=== PATIENT | female | born 1940 | race Caucasian/White ===

== ENCOUNTER 2016-08-19 17:17 | Observation (INO) | payer MEDICARE ==
[2016-08-19] MEDS ORDERED: Aspirin Low Dose CHEW TAB* 81 MG PO ONE (19:42)
[2016-08-19] MEDS ORDERED: Aspirin Low Dose CHEW TAB* 81 MG ONE (19:51)
[2016-08-19 20:11] LABS: Hematocrit 38 % (35-47); Hemoglobin 12.3 g/dl (12.0-16.0); Mean Corpuscular HGB Conc 33 g/dl (31-36); Mean Corpuscular Hemoglobin 28 pg (27-31); Mean Corpuscular Volume 86 fL (80-97); Mean Platelet Volume 8 um3 (7.4-10.4); Red Cell Distribution Width 15 % (10.5-15); White Blood Count 13.8 10^3/ul (3.5-10.8)
[2016-08-19 20:13] LABS: Add Diff/Slide Review? Slide Review Added; Comments Flag Yes
[2016-08-19 20:22] LABS: Albumin 3.5 g/dL (3.2-5.2); BUN/Creatinine Ratio 18.6 (8-20); EGFR African American 67.4 (>60); EGFR Non-African American 52.4 (>60); Globulin 2.9 g/dL (2-4); Potassium 3.5 mmol/L (3.5-5.0); Total Bilirubin 0.7 mg/dL (0.2-1.0); Total Protein 6.4 g/dL (6.4-8.9)
[2016-08-19 20:26] LABS: Troponin I 0.67 ng/mL (<0.04)
[2016-08-19] MEDS ORDERED: Nitroglycerin TAB 0.4 MG* 0.4 MG TAB SL ONE (20:46)
--- NOTE | 2016-08-19 21:01 | RAD ---
INDICATION: Shortness of breath one week after quadruple bypass surgery COMPARISON: Most recent comparison chest x-rays dated July 16, 2016 TECHNIQUE: Single AP portable view of the chest was obtained. FINDINGS: Image quality is compromised due to the relative inferiority of a portable chest x-ray. There is interval appearance of sternotomy wires and surgical clips overlying the mediastinum. The heart and mediastinum exhibit normal size and contour. Atherosclerotic calcification is seen overlying the arch of the aorta. The lungs are grossly clear. There is no evidence of a large pleural effusion. Visualized bones are normal for the patient's age. IMPRESSION: Postoperative findings as described above without radiographic evidence of acute cardiopulmonary abnormality.
[2016-08-19] MEDS ORDERED: Iodixanol* (CONTRAST) 320 MG/ML 100 ML SDV IV ONE (21:08)
--- NOTE | 2016-08-19 21:48 | RAD ---
INDICATION: Headache 1 week after quadruple bypass surgery COMPARISON: Similar examination dated June 09, 2015 TECHNIQUE: Contiguous axial sections of the brain were obtained from the skull base to the vertex without contrast. FINDINGS: There is stable hypoattenuation involving the right frontal lobe relative to the previous CT examination. Postsurgical changes include craniectomy involving the right frontal lobe. A stable surgical clip is seen at the right of midline sella turcica. The rosales-white matter differentiation is otherwise adequately maintained. There is no focal mass, mass effect or midline shift. There is no extra-axial hemorrhage. The visualized portion of the paranasal sinuses and mastoid air cells appear clear. IMPRESSION: Postoperative findings similar in appearance to the June 09, 2015 CT examination as described above.
--- NOTE | 2016-08-19 21:59 | RAD ---
INDICATION: Shortness of breath one week after quadruple bypass surgery. COMPARISON: None TECHNIQUE: Axial source images were acquired following the administration of 74 mL of Visipaque [address] angiographic technique. Coronal and sagittal reconstructed images were constructed and reviewed. FINDINGS: There there are no filling defects in the pulmonary arteries to indicate acute pulmonary embolic disease. The lungs are grossly clear. There is a small right-sided pleural effusion. There is fluid surrounding the descending thoracic aorta at the medial margin of the pleural space causing compressive atelectasis of the adjacent left lower lobe. Contrast injected into the left upper extremity is seen tracking along the azygos and hemiazygos veins refluxing inferiorly. Postoperative findings include sternotomy wires and surgical clips overlying the sternum. There is a small pericardial effusion. There is no mediastinal, hilar, or axillary lymphadenopathy. The visualized osseous structures appear normal. Limited views of the upper abdomen show no abnormalities. IMPRESSION: 1. No CT of evidence of pulmonary embolism. 2. Postoperative findings related to the patient's coronary artery bypass are described above. There is fluid tracking around the descending thoracic aorta collecting in the pleural space and causing a small degree of compressive atelectasis along the medial margin of the left lower lobe. 3. There is a small pericardial effusion. 4. There is a very small right-sided pleural effusion.
[2016-08-19] MEDS ORDERED: Aspirin TAB* 325 MG PO ONE (22:01)
[2016-08-19] MEDS ORDERED: Morphine INJ* 4 MG/ML 1 ML SYRINGE IV ONE (22:01)
[2016-08-19] MEDS ORDERED: Ondansetron INJ* 2 MG/ML VIAL IV ONE (22:01)
[2016-08-19] MEDS ORDERED: Ketorolac INJ* 30 MG/ML 1 ML VIAL IV PUSH ONE (22:11)
[2016-08-19 22:36] LABS: C Reactive Protein 21.88 mg/L (< 5.00)
[2016-08-19] MEDS ORDERED: Metoclopramide TAB* 10 MG PO PRN (22:37)
[2016-08-19] MEDS ORDERED: HYDROcodone/ACETAMIN 5-325 MG* 1 TAB PO PRN (22:37)
[2016-08-19] MEDS ORDERED: Dextrose 50% Syringe 50 ML* 25 GM/50 ML SYRINGE IV PUSH PRN (22:39)
[2016-08-19] MEDS ORDERED: Acetaminophen SUPP* 650 MG SUPP PR PRN (22:39)
[2016-08-19] MEDS ORDERED: Atorvastatin* 20 MG TAB PO SCH (23:00)
[2016-08-19 23:02] LABS: Erythrocyte Sed Rate 39 mm/Hr (0-40)
--- NOTE | 2016-08-20 02:43 | HP ---
HISTORY AND PHYSICAL: DATE OF ADMISSION: 08/19/16 PRIMARY CARE PHYSICIAN: Dr. John Taylor. HISTORY OF PRESENT ILLNESS: The patient is a 76-year-old woman, status post coronary artery bypass just 1 week ago whose visiting nurse was seeing her when she got out of her chair and became lightheaded and dizzy. She was also sweating profusely. She denied any chest pain, but was little short of breath. She had no loss of consciousness. She had no palpitations. She did lie on the table for quite a while and finally, the symptoms resolved. She had nausea and vomiting. Although she has not eaten much recently and she has occasionally taken her pain medications of [place]. Furthermore, she was placed on furosemide recently. PAST MEDICAL HISTORY: As noted, the patient has 4-vessel CABG on 08/11/16 at [place], coronary artery disease, bezoar, gastroparesis, type 2 diabetes mellitus, osteoarthritis of the knee, carpal tunnel syndrome, insomnia, diabetic neurological disorder, hypertension, hyperlipidemia. PAST SURGICAL HISTORY: Includes CABG, hernia repair, x4, Jordan fundoplication, cholecystectomy, cerebral aneurysm repair, cataract removal, partial meniscectomy. CURRENT MEDICATIONS: As follows: 1. Metformin 1000 mg twice daily. 2. Simvastatin 40 mg at bedtime. 3. Potassium chloride 20 mEq daily. 4. Starlix 60 mg 3 times a day. 5. Metoprolol titrate 25 mg twice daily. 6. Reglan 5 mg 3 times a day as needed. 7. Magnesium oxide 100 mg daily. 8. [place] 5/325 as needed for pain. 9. Furosemide 40 mg daily, supposed to end tomorrow. 10. Enalapril 10 mg twice daily, was just recently discontinued. 11. Aspirin 81 mg daily. ALLERGIES: She has allergy/adverse reaction to PENICILLIN and DAPAGLIFLOZIN. FAMILY HISTORY: Significant for diabetes and cancer. Father had diabetes. SOCIAL HISTORY: She is a . Her daughter, Radha Loa, is her healthcare proxy. She is ex-tobacco, smoked a pack a day for 2 years, quit at age 19. No alcohol or recreational drug use. She is retired. REVIEW OF SYSTEMS: A 14-point review of systems was completed with the patient. All pertinent positives and negatives are in the history of present illness, otherwise it is negative. PHYSICAL EXAMINATION GENERAL: Pleasant woman, lying in bed, in no acute distress. VITAL SIGNS: Blood pressure 125/76, pulse ox 96%, respiratory rate 26 breaths per minute, heart rate 108 beats per minute, temperature is 98.4 degrees. HEENT: Normocephalic, atraumatic. Pupils equal, round and reactive to light. Moist Mucous membranes. NECK: Supple. No JVD, bruits, palpable thyroid, or lymphadenopathy. CHEST: Clear to auscultation and percussion bilaterally. CARDIOVASCULAR: S1, S2 appreciated. ABDOMEN: Positive bowel sounds in all 4 quadrants. Soft, nontender. EXTREMITIES: No cyanosis, clubbing, or edema. +2 peripheral pulses bilaterally. NEURO: Alert and oriented x3. Moves all extremities. SKIN: No rashes or abnormalities. DIAGNOSTIC STUDIES/LAB DATA: White count 13.8, hemoglobin 12.3, hematocrit 38 , platelets 171. Sodium 131, potassium 3.5, chloride 92, CO2 29, BUN 19, creatinine 1.00, troponin is 0.67, BNP is 271. EKG shows sinus tachycardia at 112 beats per minute, normal axis, Q's in II, III, and F, LVH. Brain CT shows postoperative findings similar to 06/09/15. Examination as described above. Chest x-ray was interpreted by Radiology as postoperative findings described above without radiographic evidence of acute cardiopulmonary abnormality. CTA of the chest shows as interpreted by Radiology no CT evidence of pulmonary embolism. Post-operative findings related to the patient's coronary artery bypass as described above. Fluid tracking around the descending thoracic aorta collecting in the pleural space and causing a small degree compression atelectasis along the medial margin of the left lower lobe. There is a small pericardial effusion. There is a small right-sided pleural effusion. ASSESSMENT AND PLAN: 1. Dizziness and lightheadedness, status post CABG. I highly doubt this is secondary to her recent surgery or a manifestation of coronary artery disease. Her troponin likely is elevated from her recent surgery. We will cycle them, however. I will place her on telemetry. I will also get a transverse echocardiogram because of the small pericardial effusion, but again this is likely secondary to some inflammation post CABG. I think her lightheadedness and dizziness may be from being on furosemide, not eating much and her nausea and vomiting could be from the narcotics and not eating much. We will observe overnight by anticipation and will do well and go home fairly shortly. 2. Diabetes mellitus. Hold metformin, fingersticks with sliding scale insulin. 3. Hypertension, good control. Continue current regimen. 4. Hyperlipidemia. Continue statin, stable. 5. FEN. NPO after midnight just in case she needs intervention of some kind. 6. The patient is a full code. TIME SPENT: Over 75 minutes were spent on this H and P, more than 40 minutes of which was spent in direct [id number] contact with the patient in evaluation , physical exam, counseling, and coordination of care. CC: Dr. John Taylor; [place], * [id number]/CPS #: [id number] JORGE
[2016-08-20] MEDS: Insulin LISPRO* 1 UNITS UNIT SUBCUT SCH ×3 (03:03→12:39)
[2016-08-20] MEDS: Heparin VIAL(*) 5000 UNITS/ML VIAL (FIVE THOUSAND) SUBCUT SCH ×2 (06:24→12:38)
[2016-08-20] MEDS: NATEGLINIDE 60 MG PO SCH ×2 (08:42→12:27)
[2016-08-20] MEDS ORDERED: Metoprolol Tartrate TAB* 25 MG PO SCH (09:00)
[2016-08-20] MEDS ORDERED: Magnesium Oxide TAB* 400 MG PO SCH (09:00)
[2016-08-20] MEDS ORDERED: Enalapril TAB* 20 MG PO SCH (09:00)
[2016-08-20] MEDS ORDERED: Furosemide TAB* 40 MG PO SCH (09:00)
[2016-08-20] MEDS ORDERED: Potassium Chlor TAB* 20 MEQ TAB.ER PO SCH (09:00)
[2016-08-20] MEDS ORDERED: Aspirin EC Low Dose* 81 MG TAB.EC PO SCH (09:00)
[2016-08-20] MEDS ORDERED: NS 0.9% 1000 ML* 500 ML IV SCH (10:00)
[2016-08-20 10:22] LABS: Hematocrit 35 % (35-47); Hemoglobin 11.4 g/dl (12.0-16.0); Mean Corpuscular HGB Conc 33 g/dl (31-36); Mean Corpuscular Hemoglobin 28 pg (27-31); Mean Corpuscular Volume 86 fL (80-97); Mean Platelet Volume 8 um3 (7.4-10.4); Red Blood Count 4.02 10^6/ul (4.0-5.4); Red Cell Distribution Width 14 % (10.5-15); White Blood Count 12.3 10^3/ul (3.5-10.8)
[2016-08-20 10:44] LABS: BUN/Creatinine Ratio 21.9 (8-20); Calcium 8.8 mg/dL (8.6-10.3); EGFR African American 65.2 (>60); EGFR Non-African American 50.7 (>60); Potassium 3.9 mmol/L (3.5-5.0)
[2016-08-20 11:41] VITALS: BP 133/45
--- NOTE | 2016-08-20 12:10 | ECHO ---
Patient: SONNY RETANA Rec#: [id number] : 1940 Date: 08/20/2016 Age: 76y Height: 157.48 cm / 62.0 in Weight: 74.84 kg / 164.9 lbs Sex: F BSA: 1.76 Room#: [facility] Admit Date#: 08/19/2016 Type: Inpatient Referring: Bon Wooten MD Reading: Twyla Rand MD Bridal Sales Consultant: Vicky Manriquez RDCS CC: John Taylor MD Transthoracic Echocardiogram Indication: CAD/s/p CABG BP: 109/42 HR: 81 Rhythm: NSR Findings History: 9 days s/p CABG x4,CAD,DM,HTN,HLD,former smoker. Technical Comments: The study is technically limited due to the patient's smoking history. Completed at 1138. Left Ventricle: The left ventricular chamber size is decreased. Moderate concentric left ventricular hypertrophy is observed. The estimated ejection fraction is 55-60%. Post surgical hypokinesis of the interventricular septum is observed consistent with coronary artery bypass. Abnormal left ventricular diastolic function is observed. Left Atrium: The left atrial chamber size is normal. Right Ventricle: The right ventricular cavity size is normal. The right ventricular global systolic function is normal. The septum has abnormal paradoxical motion consistent with post-operative pressure. Right Atrium: The right atrial cavity size is normal. Aortic Valve: The aortic valve is trileaflet. The aortic valve leaflets are mildly thickened. Best visualization from A5C. There is mild aortic regurgitation. Mitral Valve: There is mitral annular calcification. The mitral valve leaflets are mildly thickened. There is trace to mild mitral regurgitation. There is no evidence of mitral stenosis. Tricuspid Valve: The tricuspid valve leaflets are normal. There is mild tricuspid regurgitation. There is evidence of mild to moderate pulmonary hypertension. There is no tricuspid stenosis. Pulmonic Valve: The pulmonic valve appears normal. There is no evidence of pulmonic regurgitation. There is no pulmonic stenosis. Pericardium: There is no pericardial effusion. Aorta: There is no dilatation of the ascending aorta. There is no dilatation of the aortic arch. There is no dilation of the aortic root. Pulmonary Artery: The main pulmonary artery is not well visualized. Venous: The venous system is not well visualized. Conclusions Moderate concentric left ventricular hypertrophy is observed. Expected septal dyskinesis c/w post CABG noted, all other areas of the myocardium moved normally with normal to hyperdynamic systolic function. The estimated ejection fraction is 55-60%. Abnormal left ventricular diastolic function is observed. The right ventricular global systolic function is normal. Aortic valve sclerosis with mild aortic regurgitation, no reversal of flow in the descending aorta. There is trace to mild mitral regurgitation. There is mild tricuspid regurgitation. There is evidence of mild to moderate pulmonary hypertension: 48 mmHg. There is no pericardial effusion. Technically limited as expected with recent CABG. Compared with prior echo of 07/24/16, left ventricular function is stable, RV no longer hyperdynamic, PA pressure has increased from 30 mmHg. Measurements Name Value Normal Range RVIDd (AP) 2D 3 cm (0.9 - 2.6) RVDdMajor (2D) 3.8 cm (2.2 - 4.4) RAd ISD 4CH 4.3 cm (3.4 - 4.9) RA (A4C)W 3.3 cm (2.9 - 4.6) IVSd (2D) 1.4 cm (0.6 - 1) LVPWd (2D) 1.3 cm (0.6 - 1) LVIDd (2D) 3.1 cm (3.6 - 5.4) LVIDs (2D) 2.1 cm - LV FS (2D) 32 % (25 - 45) Aortic Annulus 1.5 cm (1.4 - 2.6) Ao root diameter (2D) 3.2 cm (2.1 - 3.5) Ascending Ao 3.2 cm (2.1 - 3.4) Aortic arch 2.7 cm (1.8 - 3.4) LA dimension (AP) 2D 3.7 cm (2.3 - 3.8) LAd ISD 4CH 4.9 cm (2.9 - 5.3) LA ISD 4CH W 3.5 cm (2.5 - 4.5) Name Value Normal Range LA ESV SP 4CH (A/L) 37 ml - LA ESV SP 2CH (A/L) 36 ml - LA ESV BP (A/L) 37 ml - LA ESV BP (A/L) index 20.9 ml/m2 - LA ESV SP 4CH (MOD) 33 ml - LA ESV SP 2CH (MOD) 36 ml - Name Value Normal Range MV E-wave Vmax 0.7 m/sec - MV deceleration time 253 msec - MV A-wave Vmax 1.1 m/sec - MV E:A ratio 0.68 ratio - LV septal e' Vmax 0.04 m/sec - LV lateral e' Vmax 0.04 m/sec - LV E:e' septal ratio 17.5 ratio - LV E:e' lateral ratio 17.5 ratio - Name Value Normal Range AV Vmax 1.9 m/sec - AV VTI 36.2 cm - AV peak gradient 13.18 mmHg - AV mean gradient 7.18 mmHg - LVOT Vmax 1.6 m/sec - LVOT VTI 38 cm - LVOT peak gradient 9.91 mmHg - LVOT mean gradient 4.61 mmHg - AR PHT 341 msec - AR peak gradient 60.06 mmHg - Name Value Normal Range TR Vmax 3.2 m/sec - TR peak gradient 40 mmHg - RAP 8 mmHg - RVSP 48 mmHg - Name Value Normal Range PV Vmax 0.7 m/sec - PV peak gradient 1.9 mmHg -
--- NOTE | 2016-08-20 22:28 | ED ---
Daron Tai Adam, scribed for Gino Dick MD on 08/19/16 at 1919 . Complex/Multi-Sys Presentation - HPI Summary HPI Summary: Pt is a 76 year old female presenting with SOB and multiple other complaints since a CABG last week. She states that the visiting nurse was at the house today and the pt was getting short of breath, dizzy, and diaphoretic while walking to the kitchen. She currently c/o pain in her upper back between the spine and shoulder blade that set on 2 days ago. She had a severe REYES yesterday. She also c/o blurred vision and humming in her ears today. She denies fever, chills, vomiting, diarrhea, cough, weight gain. Pt was discharged 4 days ago after having CABG x4 in [place] 1 week ago. - History Of Current Complaint Chief Complaint: EDShortnessOfBreath Time Seen by Provider: 08/19/16 17:40 Hx Obtained From: Patient Onset/Duration: Gradual Onset, Lasting Days, Still Present Timing: Constant Severity Currently: Moderate Severity Initially: Moderate Location: Pain At: - Upper back Character: Typical Headache Associated Signs And Symptoms: Positive: Dizziness, SOB, Diaphoresis, Other - Blurred vision, humming in ears - Allergies/Home Medications Allergies/Adverse Reactions: Allergies Allergy/AdvReac Type Severity Reaction Status Date / Time Penicillins Allergy Unknown See Comment Verified 03/14/16 06:18 Dapagliflozin [From [facility]] Allergy Unknown Verified 08/07/16 16:25 Reaction Details EPIDURAL Allergy PT STATES Uncoded 03/14/16 06:18 SHE GOT TO MUCH Home Medications: Home Medications Aspirin EC Low Dose* [Ecotrin EC Low Dose 81 MG*] 81 mg PO DAILY 08/19/16 [ History Confirmed 08/19/16] Furosemide TAB* [Lasix TAB*] 40 mg PO DAILY 08/19/16 [History Confirmed 08/19/16 ] HYDROcodone/ACETAMIN 5-325 MG* [[place] 5-325 TAB*] 1 - 2 tab PO Q4H PRN MDD 12 tabs 08/19/16 [History Confirmed 08/19/16] Magnesium Oxide TAB* [MagOx 400 TAB*] 400 mg PO DAILY 08/19/16 [History Confirmed 08/19/16] Metoclopramide TAB* [Reglan TAB*] 5 mg PO TID AC PRN 08/19/16 [History Confirmed 08/19/16] Nateglinide(NF) [Starlix(NF)] 60 mg PO TID AC 08/19/16 [History Confirmed ] Potassium Chlor TAB* [Klor Con ER TAB*] 20 meq PO DAILY 08/19/16 [History Confirmed 08/19/16] Simvastatin (NF) [Zocor (NF)] 40 mg PO BEDTIME 08/19/16 [History Confirmed 08/19] metFORMIN* [Glucophage 1000 MG TAB *] 1,000 mg PO BID WITH MEALS 08/19/16 [ History Confirmed 08/19/16] PMH/Surg Hx/FS Hx/Imm Hx Endocrine/Hematology History: Reports: Hx Diabetes - type 2 Denies: Hx Thyroid Disease Cardiovascular History: Reports: Hx Hypertension Denies: Other Cardiovascular Problems/Disorders Respiratory History: Reports: Hx Sleep Apnea - NOT DIAGNOSED Denies: Hx Asthma, Hx Chronic Obstructive Pulmonary Disease (COPD) GI History: Reports: Hx Hiatal Hernia - SURGICALLY REPAIRED 1992 Denies: Hx Ulcer, Other GI Disorders Musculoskeletal History: Reports: Hx Arthritis - RIGHT KNEE, Hx Rheumatoid Arthritis Denies: Hx Osteoporosis, Other Musculoskeletal History Sensory History: Reports: Hx Cataracts - ONEAL, Hx Contacts or Glasses - GLASSES Denies: Hx Hearing Aid Opthamlomology History: Reports: Hx Cataracts - ONEAL, Hx Contacts or Glasses - GLASSES Neurological History: Reports: Hx Migraine - PAST ONLY, Other Neuro Impairments/ Disorders - 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 Psychiatric History: Reports: Hx Anxiety - MILD, NO MEDS - Surgical History Surgery Procedure, Year, and Place: 4 c sections, gallbladder removed, many hernias, eye sugery Hx Anesthesia Reactions: Yes - N/V - Immunization History Date of Tetanus Vaccine: Unk Date of Influenza Vaccine: Fall 2014 Infectious Disease History: Denies: Hx Hepatitis, Hx Human Immunodeficiency Virus (HIV), Traveled Outside the [place] in Last 30 Days - Family History Known Family History: Positive: Other - Negative: osteoporosis, breast cancer, malignant hyperthermia - Social History Occupation: Retired Lives: Alone Alcohol Use: None Hx Substance Use: No Substance Use Type: Reports: None Hx Tobacco Use: No Smoking Status (MU): Never Smoked Tobacco Have You Smoked in the Last Year: No Review of Systems Positive: Skin Diaphoresis. Negative: Fever, Chills Positive: Blurred Vision. Negative: Erythema Positive: Other - Humming in ears. Negative: Sore Throat Negative: Chest Pain Positive: Shortness Of Breath. Negative: Cough Negative: Abdominal Pain, Vomiting, Nausea Negative: dysuria, hematuria Positive: Other - Back pain. Negative: Edema Negative: Rash Neurological: Other - Dizziness Positive: Headache All Other Systems Reviewed And Are Negative: Yes Physical Exam - Summary Physical Exam Summary: Constitutional: Well-developed, Well-nourished, Alert. (-) Distressed Skin: Warm, Dry HENT: Normocephalic; Atraumatic Eyes: Conjunctiva normal Neck: Musculoskeletal ROM normal neck. (-) JVD, (-) Stridor, (-) Tracheal deviation Cardio: Rhythm regular, rate normal, Heart sounds normal; Intact distal pulses; The pedal pulses are 2+ and symmetric. Radial pulses are 2+ and symmetric. (-) Murmur Pulmonary/Chest wall: Effort normal. (-) Respiratory distress, (-) Wheezes, (-) Rales Abd: Soft, (-) Tenderness, (-) Distension, (-) Guarding, (-) Rebound Musculoskeletal: (-) Edema Lymph: (-) Cervical adenopathy Neuro: Alert, Oriented x3 Psych: Mood and affect Normal Triage Information Reviewed: Yes Vital Signs On Initial Exam: Initial Vitals Temp Pulse Resp BP Pulse Ox 98.4 F 115 20 114/54 98 08/19/16 17:42 08/19/16 17:42 08/19/16 17:42 08/19/16 17:42 08/19/16 17:42 Vital Signs Reviewed: Yes - Colon Coma Scale Coma Scale Total: 15 Diagnostics - Vital Signs Vital Signs Temp Pulse Resp BP Pulse Ox 08/19/16 18:00 18 114/54 08/19/16 17:42 98.4 F 115 20 114/54 98 - Laboratory Result Diagrams: 08/19/16 19:55 08/19/16 19:55 Lab Statement: Any lab studies that have been ordered have been reviewed, and results considered in the medical decision making process. - Radiology CXR Radiology Interpretation Completed By: Radiologist - IMPRESSION: Postoperative findings as described above without radiographic evidence of acute cardiopulmonary abnormality. - CT CHEST/THORAX CTA CT Interpretation Completed By: Radiologist - IMPRESSION: 1. No CT of evidence of pulmonary embolism. 2. Postoperative findings related to the patient's coronary artery bypass are described above. There is fluid tracking around the descending thoracic aorta collecting in the pleural space and causing a small degree of compressive atelectasis along the medial margin of the left lower lobe. 3. There is a small pericardial effusion. 4. There is a very small right-sided pleural effusion. BRAIN CT Interpretation Completed By: Radiologist - IMPRESSION: Postoperative findings similar in appearance to the June 09, 2015 CT examination as described above. - EKG 20:03 Cardiac Rate: Tachycardia - 112 BPM EKG Rhythm: Sinus Tachycardia - Additional Comments Diagnostic Additional Comments: Troponin I - 0.67 Complex Multi-Symp Course/Dx Course Of Treatment: Initial patient contact made at 19:15. Medical record review: Pt was having outpatient cardiac catheterization and was transferred to [facility] for severe three vessel disease. It appears that no troponin testing was done at [facility]. Pt developed post-op anemia and trasfused 2 units of packed red blood cells. Assessment/Plan: Elevation of troponin post-operatively. Less likely VT. No baseline labs for comparison. No evidence of fluid overload. Pt is actually losing weight. - Diagnoses Provider Diagnoses: Pleural effusion, Pericardial effusion, Shortness of breath, Elevated troponin - Physician Notifications Discussed Care Of Patient With: Dr. Diaz (cardio) at 22:15. We discussed lab values, physical exam, and vital signs. He recommends the pt be admitted to [facility] with serial troponin and echocardiogram in the morning. Rule out progressive pericardial effusion. He also recommended utilizing additional nonsteroidals. Also sed rate and CRP. We felt that the findings on the CT were likely post- operative. Discharge - Discharge Plan Condition: Stable Disposition: ADMITTED TO [facility] Referrals: John Taylor MD [Primary Care Provider] - The documentation as recorded by the Daron simon Adam accurately reflects the service I personally performed and the decisions made by , Gino Dick MD.
--- NOTE | 2016-08-21 14:15 | DS ---
DISCHARGE SUMMARY: DATE OF ADMISSION: 08/19/16 DATE OF DISCHARGE: 08/20/16 PRIMARY DIAGNOSIS: Dehydration. SECONDARY DIAGNOSES: Include: 1. Coronary artery disease, status post coronary artery bypass grafting on , [facility]. 2. Type 2 diabetes. 3. Hypertension. 4. Hyperlipidemia. MEDICATIONS ON DISCHARGE: 1. Enalapril 10 mg twice daily. 2. Zocor 50 mg at bedtime. 3. Starlix 60 mg 3 times a day with meals. 4. Metoprolol tartrate 25 mg twice daily. 5. Reglan 5 mg 3 times a day with meals as needed. 6. Metformin 1000 mg twice daily with meals. 7. Magnesium oxide 400 mg daily. 8. [place] 5/325 one to two tabs every 4 hours as needed for pain. 9. Aspirin 81 mg daily. PERTINENT LABORATORY DATA: Troponin I 0.68 on three consecutive checks and then decreased to 0.54. ESR is 39 with a white count of 12.5, which is 78% neutrophils. PERTINENT DIAGNOSTIC DATA: Chest CTA, impression: No CT evidence of pulmonary embolism. Postoperative findings related to the patient's CABG including tracking above the descending thoracic aorta collecting in the pleural space and causing a small degree of compressive atelectasis along the medial margin of the left lower lobe. Small pericardial effusion. Very small right-sided pleural effusion. Transthoracic echocardiogram, impression: Moderate concentric left ventricular hypertrophy. Expected septal dyskinesis consistent with post CABG, all other areas of myocardium move normally with twukop-zb-xrhoeppipuuj systolic function. Estimated EF 55% to 60%. Abnormal left ventricular diastolic function. RV global systolic function is normal. Aortic valve sclerosis with mild AR. Wzdok-ms-qupg MR, mild TR, evidence of egcm-cz-lqnibprf pulmonary hypertension. No pericardial effusion. HISTORY OF PRESENT ILLNESS AND HOSPITAL COURSE: This is a pleasant 76-year-old female, past medical history recent 4-vessel CABG on August 11, discharged home 4 days prior to presentation. She had been feeling well for the first 2 days prior to presentation; however, developed increasing shortness of breath over the day prior to presentation. She noted when she got up to walk, she became severely lightheaded. Of note, she was discharged on Lasix for a limited course for the last day to be today. She felt severely thirsty. She was admitted to the hospital. Her troponins were monitored and she received IV fluids. With the receipt of approximately a liter to a liter and a half of IV fluids, the patient's lightheadedness improved. She had negative orthostatic vital signs and her heart rate improved from the 100s down to the 90s. Of note , last recorded heart rate in the computer is 112; however, is now high 80s to low 90s. She was ruled out for pulmonary embolism. She was ambulating back and forth to the bathroom without complaints. No lightheadedness. No chest pain. No shortness of breath and is anxious to return home. Her exam is notable for absence of infection in her sternotomy nor in her left lower extremity venous graft harvest sites. Her lungs are clear, although a small amount of atelectasis and a small pleural effusion may have been contributing to her increasing shortness of breath status post her hospital stay and operation. FOLLOWUP INSTRUCTIONS: At followup, please: 1. Follow up for resolution of symptoms. 2. Monitor volume status off Lasix. 3. No other specific labs or vitals that need followup. Reasons to return to the hospital including but not limited to recurrent or worsening symptoms including chest pain, shortness of breath, nausea, vomiting, lightheadedness, loss of consciousness, near loss of consciousness, fever, chills, night sweats, bleeding from any source, increased redness or pain in any place from her sternotomy wound or graft sites were discussed with the patient. She acknowledged understanding. TIME SPENT: Greater than 50 minutes was spent on discharge of this patient, greater than half was spent nnxn-ny-kqbs with the patient. [id number]/[facility] #: [id number] JORGE
== END 2016-08-20 16:23 | disposition home or self-care (01) ==
LOC: ED 17:17 → MEDTELE 22:39 → UNDOADMOB 23:37 → MEDTELE 08-20 11:58
PROVIDERS: ADMIT Internal Medicine; ATTEND Internal Medicine
DX: E86.0 Dehydration (principal); R06.02 Shortness of breath; R42 Dizziness and giddiness; I25.10 Atherosclerotic heart disease of native coronary artery without angina pectoris; I10 Essential (primary) hypertension; Z95.1 Presence of aortocoronary bypass graft; E78.5 Hyperlipidemia, unspecified; E11.49 Type 2 diabetes mellitus with other diabetic neurological complication; M17.10 Unilateral primary osteoarthritis, unspecified knee; G47.00 Insomnia, unspecified; J90 Pleural effusion, not elsewhere classified; I31.3 Pericardial effusion (noninflammatory); R00.0 Tachycardia, unspecified; I51.7 Cardiomegaly; R94.31 Abnormal electrocardiogram [ECG] [EKG]; Z79.82 Long term (current) use of aspirin; Z79.84 Long term (current) use of oral hypoglycemic drugs; Z79.899 Other long term (current) drug therapy; Z88.0 Allergy status to penicillin; Z88.8 Allergy status to other drugs, medicaments and biological substances
CPT/HCPCS: 36415; 70450; 71010; 71275; 80048; 80053; 83605; 83880; 84484; 85025; 85652; 86140; 93005; 93306; 96372; 96374; 96375; 99284; A9270-GY; G0378; J1644; J1885; J2270; J2405; Q9967

== ENCOUNTER 2016-09-09 12:45 | Inpatient (IN) | payer MEDICARE ==
[2016-09-09] MEDS: NS 0.9% 1000 ML* 1,000 ML IV SCH ×2 (15:30→22:16)
[2016-09-09 15:38] LABS: Hematocrit 34 % (35-47); Hemoglobin 10.8 g/dl (12.0-16.0); Mean Corpuscular HGB Conc 32 g/dl (31-36); Mean Corpuscular Hemoglobin 27 pg (27-31); Mean Corpuscular Volume 86 fL (80-97); Mean Platelet Volume 7 um3 (7.4-10.4); Red Blood Count 3.97 10^6/ul (4.0-5.4); Red Cell Distribution Width 15 % (10.5-15); White Blood Count 7.2 10^3/ul (3.5-10.8)
--- NOTE | 2016-09-09 15:46 | RAD ---
INDICATION: Feels ill. COMPARISON: Comparison is made with prior chest x-ray study from August 27, 2016. TECHNIQUE: A portable view of the chest was obtained. FINDINGS: The patient appears to be status post coronary artery bypass surgery. The heart is within normal limits in size. The lungs are clear. No pleural effusion is seen. Several surgical clips project in the left upper quadrant in the region of the gastroesophageal junction. IMPRESSION: POSTSURGICAL CHANGES, NO EVIDENCE FOR ACUTE FINDING.
[2016-09-09 15:57] LABS: Albumin 3.7 g/dL (3.2-5.2); BUN/Creatinine Ratio 17.1 (8-20); Calcium 9.4 mg/dL (8.6-10.3); EGFR African American 104.1 (>60); EGFR Non-African American 80.9 (>60); Globulin 3.2 g/dL (2-4); Magnesium 1.8 mg/dL (1.9-2.7); Potassium 4.7 mmol/L (3.5-5.0); Total Bilirubin 0.4 mg/dL (0.2-1.0); Total Protein 6.9 g/dL (6.4-8.9)
[2016-09-09 15:59] LABS: Troponin I 0.01 ng/mL (<0.04)
[2016-09-09] MEDS ORDERED: Iodixanol* (CONTRAST) 320 MG/ML 100 ML SDV IV ONE ×2 (16:04→18:56)
[2016-09-09 16:06] LABS: Urine Bacteria Absent (Absent); Urine Bilirubin Negative (Negative); Urine Glucose Negative (Negative); Urine Nitrite Negative (Negative)
[2016-09-09 16:27] LABS: TSH (Thyroid Stimulating Horm) 0.29 mcIU/mL (0.34-5.60)
--- NOTE | 2016-09-09 17:02 | RAD ---
INDICATION: Currently has DVT, shortness of breath. COMPARISON: Comparison is made with a prior CT angiogram of the chest from August 19, 2016. Correlation is also made with a chest x-ray study from September 09, 2016. TECHNIQUE: A CT angiogram of the chest was performed with intravenous following intravenous injection of 69 ml of Visipaque 320 nonionic contrast. Contiguous axial sections were obtained from the lung apices through the lung bases. Images were reconstructed in the coronal and sagittal planes. FINDINGS: There is thrombus in the right main pulmonary artery extending into right upper lobe branches. No other intraluminal filling defects are seen. These findings are new from the prior study. The heart appears mildly enlarged and unchanged. The patient is status post coronary artery bypass surgery. There is a small pericardial effusion which is unchanged. The thoracic aorta is normal in caliber and demonstrates homogeneous contrast opacification. No significant enlarged mediastinal or hilar lymph nodes are seen. There is mild dependent bilateral lower lobe subsegmental atelectasis. The lungs are otherwise clear. No pleural effusion is present. No significant focal osseous abnormality is seen. IMPRESSION: 1. MULTIPLE PULMONARY EMBOLI INVOLVING THE RIGHT MAIN PULMONARY ARTERY AND RIGHT UPPER LOBE SEGMENTAL ARTERY BRANCHES. 2. SMALL PERICARDIAL EFFUSION, UNCHANGED.
[2016-09-09] MEDS ORDERED: Enoxaparin(*) 80 MG/0.8 ML SYR SUBCUT ONE (17:07)
--- NOTE | 2016-09-09 17:48 | RAD ---
INDICATION: Headache with blurry vision. COMPARISON: Comparison is made with a prior CT of the brain from August 19, 2016. TECHNIQUE: Contiguous axial sections of the brain were obtained from the skull base to the vertex without contrast. FINDINGS: The patient is status post right frontal craniotomy and clipping of an aneurysm. There are surgical clips present at the skull base on the right side adjacent to the cavernous sinus and sella turcica. The ventricles, cisterns and sulci are mildly prominent consistent with mild atrophy. There is a focal area of encephalomalacia in the right frontal and anterior right temporal lobes which is unchanged. No other focal abnormality or mass effect is present. No hemorrhage is seen. There is contrast present from a recent prior CT of the chest which was performed approximately one hour ago. The visualized portion of the paranasal sinuses and mastoid air cells appear clear. IMPRESSION: POSTSURGICAL CHANGES MOST CONSISTENT WITH A PRIOR ANEURYSM CLIPPING, NO EVIDENCE FOR ACUTE FINDING.
[2016-09-09] MEDS ORDERED: Ondansetron INJ* 2 MG/ML VIAL IV PRN (18:36)
[2016-09-09] MEDS ORDERED: HYDROcodone/ACETAMIN 5-325 MG* 1 TAB PO PRN (18:41)
[2016-09-09] MEDS ORDERED: Metoclopramide TAB* 10 MG PO PRN (18:41)
[2016-09-09] MEDS ORDERED: Dextrose 50% Syringe 50 ML* 25 GM/50 ML SYRINGE IV PUSH PRN (18:58)
--- NOTE | 2016-09-09 19:44 | RAD ---
INDICATION: Headache, history of aneurysm. COMPARISON: Comparison is made with a prior CT angiogram of the brain from June 20, 2015 correlation is also made with a prior CT of the brain from September 09, 2016. TECHNIQUE: A CT angiogram of the head and neck was performed following intravenous injection of 80 ml of Visipaque 320 nonionic contrast. Contiguous axial sections were obtained from the thoracic inlet through the skull vertex. Images were reconstructed in the coronal and sagittal planes and in a 3-D volume rendered format. The distal cervical internal carotid artery diameter is used as the denominator for stenosis measurement. FINDINGS: RIGHT CAROTID: The common carotid artery appears widely patent. There is moderate calcific plaque present within the carotid bulb and proximal internal carotid artery giving rise to approximately a 30% stenosis. The remaining internal carotid artery appears widely patent. LEFT CAROTID: The left common carotid artery appears widely patent. There is moderate calcific plaque present within the carotid bulb and proximal internal carotid artery giving rise to approximately a 30% stenosis. The remaining internal carotid artery appears widely patent. VERTEBRALS: The vertebral arteries appear patent. CTA BRAIN: The internal carotid, anterior and middle cerebral arteries appear patent without evidence for high-grade stenosis or occlusion. There is mild to moderate calcific plaque present within the cavernous portion of the internal carotid arteries. There are aneurysm clips present at the skull base which limits the study slightly. The vertebral, basilar and posterior cerebral arteries appear patent without evidence for high-grade stenosis or occlusion. There is a focal area of encephalomalacia involving the anterior aspect of the right temporal lobe and the adjacent right frontal lobe. No other focal abnormalities are seen. No aneurysm or vascular malformation is seen. NECK: No significant enlarged lymph nodes are seen within the neck. The thyroid, parotid and submandibular glands appear to be within normal limits. Mild interstitial changes noted at the lung apices which otherwise appear clear. The sinuses are clear. The patient is status post right frontal craniotomy. IMPRESSION: 1. NO EVIDENCE FOR HEMODYNAMICALLY SIGNIFICANT CAROTID STENOSIS. 2. NO EVIDENCE FOR RECURRENT ANEURYSM. 3. STUDY SLIGHTLY LIMITED DUE TO ARTIFACT FROM ANEURYSM CLIPS. CPT II Codes: 3100F
[2016-09-09] MEDS: Atorvastatin* 20 MG TAB PO SCH (20:31)
--- NOTE | 2016-09-09 22:14 | HP ---
HISTORY AND PHYSICAL: DATE OF ADMISSION: 09/09/16 PRIMARY CARE PROVIDER: Dr. Taylor. ATTENDING PHYSICIAN WHILE IN THE HOSPITAL: Bon Wooten MD *(report dictated by Kee Esteves NP) CHIEF COMPLAINT: 1. Headaches. 2. Blurry vision. HISTORY OF PRESENT ILLNESS: Ms. Beltran is a 76-year-old female patient coming into the ER today with complaints of blurry vision and headache. She states that last evening she had headache, it was 4/10, mild headache, but she was having some blurry vision. She thinks it lasted for about an hour, both eyes blurry, it went away. She went to bed. She woke up again this morning, she had a worsening headache, not the worst of her life, on the top of her head, front of her head, but she also was having blurry vision. It did eventually go away. She said her vision never truly returned to her baseline according to her and she was concerned. She told her visiting nurse this and the visiting nurse said that she might want to go to the hospital to evaluate it, so she was sent to the hospital and was evaluated here. She denies specifically having any changes in speech. Denies having any worsening with speech, denies any facial droop. Denies any weakness to one side or the other. Denies any dizziness. Denies having any trouble with gait. She does of interest, was recently diagnosed on with extensive right lower extremity DVT by her primary and was started on Eliquis which she has been taking and not missing any doses. She was here on 08/19/16, one week after having had a CABG on 08/11/16 over in [place] and was here for chest pain rule out and had a CTA at that point, which was negative. She comes back today again mostly because of the blurry vision, headache. She denied any worsening chest pain. Denies having any shortness of breath. Denies having any difficulty with taking a deep breath. She said she has been doing well and said her activity level had not changed. She was evaluated in the ED. She had a CAT scan which was negative of the brain. No acute findings. There was an aneurysmal clipping which she has had for sometime and unfortunately, though she did have another CTA of the chest today which did now show PE's in the lungs. Because of these findings, we were asked to evaluate for admission. PAST MEDICAL HISTORY: Significant for: 1. CAD. 2. Bezoar. 3. Osteoarthritis. 4. Gastroparesis. 5. Diabetes. 6. Carpal tunnel syndrome. 7. Insomnia. 8. Hyperlipidemia. 9. Hypertension. 10. Diabetic neurological disorders. 11. DVT. PAST SURGICAL HISTORY: 1. She has had CABG. 2. Hernia repair. 3. x4. 4. Jordan fundoplication. 5. Brain aneurysm repair. 6. Laparoscopic cholecystectomy. 7. Cataract extraction. 8. Appendectomy. 9. Knee arthroscopy. HOME MEDICATIONS: According to the list that she provided include: 1. Toprol-XL 25 mg p.o. daily. 2. Reglan 5 mg p.o. t.i.d. as needed. 3. Apixaban 5 mg p.o. b.i.d. 4. Lipitor 20 mg p.o. at bedtime. 5. Glucophage 1000 mg p.o. b.i.d. 6. Starlix 60 mg p.o. t.i.d. with meals. 7. Mag Ox 400 mg p.o. daily. 8. [place] 1 to 2 tablets every 4 hours as needed. 9. Aspirin 81 mg p.o. daily. ALLERGIES: To medications include PENICILLIN and DAPAGLIFLOZIN, an epidural. FAMILY HISTORY: Her mother had a history of PE and father had a history of diabetes. SOCIAL HISTORY: She is a former smoker, no longer smoking. She does not drink alcohol. Surrogate decision maker is her daughter, Radha. REVIEW OF SYSTEMS: There is no documented fever. She denies having any significant weight change. No double vision. No ear discharge. No rhinorrhea. No sore throat, no thyroid enlargement. She denies any chest pain currently. She denies having any orthopnea. No nocturnal dyspnea. There is no abdominal pain. No nausea, no vomiting, no dysuria. No frequency. No loss of consciousness. No pruritus. No skin ulcerations. Review of 14 systems completed, all others negative. PHYSICAL EXAMINATION GENERAL: At this time, Mrs. Beltran is a 76-year-old female patient. She is sitting in the ER stretcher. She does not appear to be in any acute distress. VITAL SIGNS: Reveals blood pressure 146/86, pulse 79, respirations 20, O2 sat 98%, temperature 98.0. HEENT: Head is atraumatic and normocephalic. Eyes: EOMs are intact. Sclerae anicteric and not pale. Throat: Oral mucosa appears to be moist. No oropharyngeal erythema. NECK: Supple. LUNGS: Clear to auscultation bilaterally. There was no wheezes, rales, or rhonchi noted. HEART: Sounds S1, S2. Regular rate and rhythm. No murmurs, rubs, or gallops. ABDOMEN: Soft, flat, nontender. Bowel sounds present. EXTREMITIES: Pulses were 2+ throughout. She is able to move all 4 extremities with 5/5 strength. NEUROLOGIC: The patient is awake, she is alert, speech is clear. Cranial nerves II through XII are intact. Complaint Specialist are equal. No facial drooping. Heel- to-mondragon intact bilaterally. Fpyoqp-ia-luzi intact bilaterally. No gross focal deficits. SKIN: Intact with the exception that she has a well-healing incision to the midline sternum which is clean, dry, and intact. No erythema noted. No discharge. LABORATORY DATA: Labs today revealed WBC 7.2, RBC 3.97, hemoglobin 10.8, hematocrit 34, platelet count of 280. INR is 1.52. PTT 27.4. D-dimer greater than 1075. Sodium 134, potassium 4.7, chloride of 101, bicarb 24, BUN 12, creatinine 0.97, glucose 99, lactic 2.4, calcium 9.4, mag 1.8, total bili 0.4, AST 15, ALT 11, alk phos 86. CK 17, CK-MB 1.5, troponin 0.01, BNP 111, TSH low at 0.29. Urine obtained showed trace 1+ blood, 1+ wbc,1+ rbc, present squamous epithelial cells. She had multiple imaging here in the ED, starting out with chest x-ray which revealed postsurgical changes, no evidence of acute findings. She had a brain CT which revealed postsurgical changes most consistent with prior aneurysm clipping, no evidence for acute finding. Chest, thorax CTA showed multiple pulmonary emboli involving the right main pulmonary artery and right upper lobe segmental artery branches, small pericardial effusion unchanged. She had an EKG obtained today as well which showed sinus tachycardia, rate of 101 with a PVC. It is reviewed with the previous EKG, appears to be similar with the exception of the ST depression. The previous EKG appears to be slightly improved to this EKG and the heart rate is not assessed. Old medical records reviewed. ASSESSMENT AND PLAN: Ms. Beltran is a 76-year-old female patient coming into the ER today with complaints of headache and blurry vision, and on evaluation found to have pulmonary embolism. She will be admitted under inpatient status for: 1. Pulmonary embolism. At this point, the patient was on Eliquis for this. It is going to be difficult to prove that this was an Eliquis failure or not. She certainly was diagnosed with the deep venous thrombosis on the of this month. She could have had the pulmonary embolism then, but we will not know. She had a CTA on the which was completely negative. I think at this point, it will be considered an Eliquis failure. I did touch base with Dr. Hanson, he was in agreement with this and we will go ahead and switch her on to Xarelto. She did get a dose of Lovenox tonight, so I will start the Xarelto in the morning at 15 mg b.i.d. for 21 days and then followed by once daily. She will be placed on telemetry and we will repeat an echo. 2. Headache with blurry vision. Again, this could be atypical migraine. It could certainly be possible embolic stroke, but again the management of which would not change in terms of she would still need to be on anticoagulation. The CT of the brain is negative. Unfortunately, she cannot have an MRI. I think at this point we need to get a CTA of the head and neck because of the history of the aneurysm to make sure this is stable. There was no report of subarachnoid bleeding. Unfortunately, she cannot have a spinal tap because she was given Lovenox in the ED and she has already been on Eliquis, so I think we will get a CT of the head and neck. We will also get another echo with a bubble study because she has a patent foramen ovale and there is a high likelihood she could have certainly embolized and this could be causing the visual changes, although I could not elicit this on exam and I did get a neurology consult and we will continue to follow. 3. Coronary artery disease. Continue the aspirin, statin, beta-mg. 4. History of gastroparesis. P.r.n. Reglan as ordered. 5. Diabetes. She will be on lispro sliding scale. 6. Carpal tunnel syndrome. Follow up with primary. 7. Hypertension. Continue her beta-mg. 8. Hyperlipidemia. Continue statin therapy. 9. Osteoarthritis. Follow up with primary. 10. DVT prophylaxis. She did get a stat Lovenox tonight. She will be placed on Xarelto tomorrow morning. 11. Code status. Full code. 12. Fluids, electrolytes, nutrition. She can have a heart healthy diet. TIME SPENT: Time spent on this admission was 70 minutes, greater than half the time was spent zqkv-[id number] with the patient obtaining my history and physical, and the other half time was spent going over the plan of care with patient and implementing plan of care. I did discuss the plan of care with my attending, Dr. Wooten, he is in agreement. KEE ESTEVES NP CC: Dr. Hanson; Dr. Taylor; Dr. De La Cruz; Dr. Rosas * [id number]/[facility] #: [id number] MTDD
[2016-09-10] MEDS: Acetaminophen TAB* 325 MG PO PRN ×3 (00:48→15:42)
[2016-09-10] MEDS: NS 0.9% 1000 ML* 1,000 ML IV SCH ×3 (05:15→20:24)
[2016-09-10 06:33] LABS: Hematocrit 32 % (35-47); Hemoglobin 10.1 g/dl (12.0-16.0); Mean Corpuscular HGB Conc 32 g/dl (31-36); Mean Corpuscular Hemoglobin 27 pg (27-31); Mean Corpuscular Volume 85 fL (80-97); Mean Platelet Volume 7 um3 (7.4-10.4); Red Blood Count 3.71 10^6/ul (4.0-5.4); Red Cell Distribution Width 15 % (10.5-15); White Blood Count 5.5 10^3/ul (3.5-10.8)
[2016-09-10 06:48] LABS: BUN/Creatinine Ratio 15.4 (8-20); Calcium 8.8 mg/dL (8.6-10.3); EGFR African American 113.4 (>60); EGFR Non-African American 88.2 (>60); Potassium 3.9 mmol/L (3.5-5.0)
[2016-09-10] MEDS ORDERED: traMADol TAB* 50 MG PO PRN (07:25)
[2016-09-10] MEDS: Insulin LISPRO* 1 UNITS UNIT SUBCUT SCH ×3 (07:48→16:56)
[2016-09-10] MEDS: Metoprolol Succinate XL TAB* 25 MG PO SCH (07:54)
[2016-09-10] MEDS: Magnesium Oxide TAB* 400 MG PO SCH (07:54)
[2016-09-10] MEDS: Aspirin EC Low Dose* 81 MG TAB.EC PO SCH (07:54)
[2016-09-10] MEDS ORDERED: Rivaroxaban TAB(*) 15 MG PO SCH (09:00)
[2016-09-10] MEDS ORDERED: Butalb/Acetamin/Caff TAB* 1 TAB PO PRN (11:07)
--- NOTE | 2016-09-10 15:07 | ECHO ---
Patient: SONNY RETANA Rec#: [id number] : 1940 Date: 09/10/2016 Age: 76y Height: 157.48 cm / 62.0 in Weight: 68.04 kg / 150.0 lbs Sex: F BSA: 1.69 Room#: 431 Admit Date#: 09/09/2016 Type: Inpatient Referring: Kee Esteves NP Reading: Twyal Rand MD Wood Tool Maker: Vicky Nicholson,RDCS,RDMS CC: John Taylor MD Transthoracic Echocardiogram Indication: Pulmonary embolism BP: 113/49 HR: 85 Rhythm: NSR Indications Pulmonary Embolism Findings History: CAD, CABG (08-11-16), HTN, HLD, DVT, DM, former smoker Technical Comments: The study quality is fair. Completed 1550 Left Ventricle: The left ventricular chamber size is normal. Mild concentric left ventricular hypertrophy is observed. Global left ventricular wall motion and contractility are within normal limits. The estimated ejection fraction is 55-60%. Abnormal left ventricular diastolic filling is observed, consistent with impaired relaxation. Left Atrium: The left atrium is slightly dilated. Right Ventricle: The right ventricle is mild to moderately dilated. The right ventricular global systolic function is mildly reduced. Right Atrium: The right atrium is mildly dilated. A patent foramen ovale is not demonstrated by agitated contrast. There is evidence of an atrial septal aneurysm. Aortic Valve: The aortic valve is trileaflet. The aortic valve leaflets are mildly thickened. Systolic excursion of the right coronary cusp is reduced.RCC does not move. There is mild aortic regurgitation. There is borderline aortic stenosis present. Mitral Valve: There is mitral annular calcification. The mitral valve leaflets are mildly thickened. There is mild mitral regurgitation. There is mild mitral stenosis. Tricuspid Valve: The tricuspid valve leaflets are normal. There is moderate tricuspid regurgitation. There is evidence that pulmonary hypertension may be underestimated. Pulmonic Valve: There is no evidence of pulmonic valve thickening. There is no evidence of pulmonic regurgitation. Pericardium: There is no significant pericardial effusion. Aorta: The aortic root appears normal. There is no dilatation of the aortic arch. Pulmonary Artery: The main pulmonary artery is not well visualized. Venous: The inferior vena cava appears normal in size. There is an approximate 50% respiratory change in the inferior vena cava dimension. Contrast: Intravenous agitated saline contrast was used to assess intracardiac shunting. Conclusions Mild concentric left ventricular hypertrophy is observed. Global left ventricular wall motion and contractility are within normal limits. The estimated ejection fraction is 55-60%. Abnormal left ventricular diastolic filling is observed, consistent with impaired relaxation. The right ventricle is mild to moderately dilated. The right ventricular global systolic function is mildly reduced. A patent foramen ovale is not demonstrated by agitated contrast. Systolic excursion of the right coronary cusp is reduced/immobile. There is borderline aortic stenosis present and mild aortic regurgitation. There is mild mitral regurgitation. There is mild mitral stenosis. There is moderate tricuspid regurgitation. There is evidence that pulmonary hypertension may be underestimated (estimated at 31 mmHg). Compared with prior echo of 08/19/16, LV function is stable, RVE and RV hypokinesis is new, the degree of TR has increased from mild, PA pressure previosly 48 mmHg. Measurements Name Value Normal Range RVIDd (AP) 2D 2.5 cm (0.9 - 2.6) RVDdMajor (2D) 3.5 cm (2.2 - 4.4) RAd ISD 4CH 5 cm (3.4 - 4.9) RA (A4C)W 4.8 cm (2.9 - 4.6) IVSd (2D) 1.2 cm (0.6 - 1) LVPWd (2D) 1.3 cm (0.6 - 1) LVIDd (2D) 3.6 cm (3.6 - 5.4) LVIDs (2D) 2.6 cm - LV FS (2D) 28 % (25 - 45) Aortic Annulus 2 cm (1.4 - 2.6) Ao root diameter (2D) 3.2 cm (2.1 - 3.5) Ascending Ao 3.4 cm (2.1 - 3.4) Aortic arch 2.7 cm (1.8 - 3.4) LA dimension (AP) 2D 3.9 cm (2.3 - 3.8) LAd ISD 4CH 4.3 cm (2.9 - 5.3) LA ISD 4CH W 4.7 cm (2.5 - 4.5) Name Value Normal Range LA ESV SP 4CH (A/L) 60.49 ml - LA ESV SP 2CH (A/L) 44.75 ml - LA ESV BP (A/L) 53.64 ml - LA ESV BP (A/L) index 31.7 ml/m2 - LA ESV SP 4CH (MOD) 57.61 ml - LA ESV SP 2CH (MOD) 43.17 ml - Name Value Normal Range MV E-wave Vmax 1 m/sec - MV deceleration time 191 msec - MV A-wave Vmax 1.2 m/sec - MV E:A ratio 0.8 ratio - P. vein S-wave Vmax 0.4 m/sec - P. vein D-wave Vmax 0.4 m/sec - P. vein A-wave duration 104 msec - LV septal e' Vmax 0.06 m/sec - LV lateral e' Vmax 0.07 m/sec - LV E:e' septal ratio 17 ratio - LV E:e' lateral ratio 13 ratio - Name Value Normal Range AV Vmax 1.5 m/sec - AV VTI 31.7 cm - AV peak gradient 9 mmHg - AV mean gradient 5.7 mmHg - LVOT Vmax 1.1 m/sec - LVOT VTI 24.3 cm - LVOT peak gradient 5 mmHg - LVOT mean gradient 3.4 mmHg - AR PHT 312.14 msec - AR peak gradient 54.47 mmHg - DEA Vmax 0.6 m/sec - Name Value Normal Range MV Vmax 1.2 m/sec - MV VTI 31.7 cm - MV peak gradient 6 mmHg - MV mean gradient 2.4 mmHg - MV PHT 66 msec - MVA (PHT) 3.3 cm2 - Name Value Normal Range TR Vmax 2.4 m/sec - TR peak gradient 23 mmHg - RAP 8 mmHg - RVSP 31 mmHg - IVC diameter 1.7 cm - Name Value Normal Range PV Vmax 0.8 m/sec - PV peak gradient 3.2 mmHg -
--- NOTE | 2016-09-10 18:21 | PN ---
Subjective Date of Service: 09/10/16 Interval History: Patient still with headache she gets daily for last year. No blurry vision. Objective Active Medications: Acetaminophen (Tylenol Tab*) 650 mg PO Q4H PRN PRN Reason: FEVER/PAIN Last Admin: 09/10/16 15:42 Dose: 650 mg Acetaminophen/Butalbital/Caffeine (Fioricet Tab*) 1 tab PO Q4H PRN PRN Reason: HEADACHE Last Admin: 09/10/16 12:21 Dose: 1 tab Hydrocodone Bitart/Acetaminophen ([place] 5-325 Tab*) 1 tab PO Q4H PRN PRN Reason: PAIN Aspirin (Aspirin Ec Low Dose*) 81 mg PO DAILY [facility] Last Admin: 09/10/16 07:54 Dose: 81 mg Atorvastatin Calcium (Lipitor*) 20 mg PO BEDTIME [facility] Last Admin: 09/09/16 20:31 Dose: 20 mg Dextrose (D50w Syringe 50 Ml*) 12.5 gm IV PUSH .FOR FS < 60 - SS PRN PRN Reason: FS < 60 Enoxaparin Sodium (Lovenox(*)) 70 mg SUBCUT Q12H [facility] Sodium Chloride (Ns 0.9% 1000 Ml*) 1,000 mls @ 150 mls/hr IV PER RATE [facility] Last Admin: 09/10/16 11:59 Dose: 150 mls/hr Insulin Human Lispro (Humalog*) 0 units SUBCUT AC [facility] PRN Reason: Protocol Last Admin: 09/10/16 16:56 Dose: Not Given Magnesium Oxide (Magox 400 Tab*) 400 mg PO DAILY [facility] Last Admin: 09/10/16 07:54 Dose: 400 mg Metoclopramide HCl (Reglan Tab*) 5 mg PO TID PRN PRN Reason: NAUSEA Metoprolol Succinate (Toprol Xl Tab*) 25 mg PO DAILY [facility] Last Admin: 09/10/16 07:54 Dose: 25 mg Ondansetron HCl (Zofran Inj*) 4 mg IV Q6H PRN PRN Reason: NAUSEA Tramadol HCl (Ultram*) 50 mg PO Q6H PRN PRN Reason: PAIN Last Admin: 09/10/16 07:54 Dose: 50 mg Warfarin Sodium (Coumadin Tab(*)) 5 mg PO DAILY@1700 [facility] PRN Reason: Protocol Vital Signs 0409/09/16 09/09/16 19:00 19:01 19:13 Temperature Pulse Rate 82 79 Respiratory 17 17 Rate Blood Pressure 143/72 (mmHg) O2 Sat by Pulse 95 96 Oximetry 09/09/16 09/09/16 09/09/16 19:30 19:47 20:00 Temperature 97.7 F Pulse Rate 78 87 91 Respiratory 16 16 16 Rate Blood Pressure 130/63 140/75 129/66 (mmHg) O2 Sat by Pulse 97 98 96 Oximetry 09/09/16 09/09/16 09/10/16 20:03 23:16 00:34 Temperature 98.0 F Pulse Rate 91 93 Respiratory 19 16 Rate Blood Pressure 129/64 (mmHg) O2 Sat by Pulse 97 94 94 Oximetry 09/10/16 09/10/16 09/10/16 03:23 07:29 07:43 Temperature 98.4 F 97.9 F Pulse Rate 75 100 Respiratory 16 16 16 Rate Blood Pressure 113/49 151/67 (mmHg) O2 Sat by Pulse 95 96 Oximetry 09/10/16 09/10/16 09/10/16 07:54 09:54 11:21 Temperature 97.8 F Pulse Rate 81 Respiratory 16 16 16 Rate Blood Pressure 111/61 (mmHg) O2 Sat by Pulse 94 Oximetry 09/10/16 09/10/16 09/10/16 12:21 14:21 14:43 Temperature 98.1 F Pulse Rate 73 Respiratory 18 16 18 Rate Blood Pressure 136/59 (mmHg) O2 Sat by Pulse 100 Oximetry Oxygen Devices in Use Now: None Appearance: Elderly woman lying in bed in NAD Eyes: No Scleral Icterus Ears/Nose/Mouth/Throat: Mucous Membranes Moist Neck: No Thyroid Enlargement, Masses Respiratory: Clear to Auscultation Cardiovascular: - - S1S2 rajni Abdominal: NL Sounds; No Tenderness; No Distention, No Hepatosplenomegaly Lymphatic: No Cervical Adenopathy Extremities: No Clubbing, Cyanosis Skin: No Rash or Ulcers Neurological: Alert and Oriented x 3 Result Diagrams: 09/10/16 05:27 09/10/16 05:27 Assess/Plan/Problems-Billing Assessment: 76 year old with headache and blurry vision found to have new PE on CTA of chest. - Patient Problems (1) Pulmonary embolism Current Visit: Yes Status: Acute Code(s): I26.99 - OTHER PULMONARY EMBOLISM WITHOUT ACUTE COR PULMONALE SNOMED Code(s): 78975066 Comment: Appreciate hematology's input. They think likely failure of Eliquis. Start Lovenox and coumadin. (2) CAD (coronary artery disease) Current Visit: Yes Status: Acute Code(s): I25.10 - ATHSCL HEART DISEASE OF [place] CORONARY ARTERY W/O ANG PCTRS SNOMED Code(s): 02129357 Comment: Stable. Continue current regimen. (3) Diabetes Current Visit: Yes Status: Acute Code(s): E11.9 - TYPE 2 DIABETES MELLITUS WITHOUT COMPLICATIONS SNOMED Code(s): 22449324 Comment: FS from - 202 . Continue FS with SSI. (4) Hypertension Current Visit: Yes Status: Acute Code(s): I10 - ESSENTIAL (PRIMARY) HYPERTENSION SNOMED Code(s): 77583951 Comment: BP adequately controlled. Continue current rx. (5) Hyperlipidemia Current Visit: Yes Status: Acute Code(s): E78.5 - HYPERLIPIDEMIA, UNSPECIFIED SNOMED Code(s): 71653204 Comment: Stable. Continue statin. (6) Headache Current Visit: Yes Status: Acute Code(s): R51 - HEADACHE SNOMED Code(s): 02544926 Comment: Questionable etiology. Trial of Fioricet. ?? PT. Follow up with neurology as outpt. (7) DVT prophylaxis Current Visit: Yes Status: Acute Code(s): EGO6317 - SNOMED Code(s): 253611137 Comment: Lovenox (8) Full code status Current Visit: Yes Status: Acute Code(s): Z78.9 - OTHER SPECIFIED HEALTH STATUS SNOMED Code(s): 440662545
[2016-09-10] MEDS: Warfarin TAB(*) 5 MG PO SCH (18:39)
[2016-09-10] MEDS: Enoxaparin(*) 80 MG/0.8 ML SYR SUBCUT SCH (18:40)
[2016-09-10] MEDS: Atorvastatin* 20 MG TAB PO SCH (20:03)
--- NOTE | 2016-09-10 21:26 | CONS ---
NEUROLOGY CONSULTATION: DATE OF CONSULTATION: 09/10/16 REFERRING PROVIDER: Kee Esteves NP. PRIMARY CARE PROVIDER: John Taylor MD. LOCATION: She is an inpatient in room 431. CHIEF COMPLAINT: Headache, blurry vision. HISTORY OF PRESENT ILLNESS: Pam Beltran is a 76-year-old right-handed woman who has been having headaches for at least a month. She states that she has been having headaches in the left side of her head and wakes up with them every morning at about 3, 4 or 5. They persist throughout the day and respond to Tylenol partially, but not completely. They are precipitated by neck movement and she has been going to massage therapist and she feels that that has been helpful. They are always in the left posterolateral head and neck. She has also noted blurry vision when she turns her head. She states that has also been going on for probably a month or more. She had history of migraine headaches when she was young and she does not describe a visual aura but just nausea, photophobia and severe sonophobia such that she would have to lie down in a dark quiet room. She had an aneurysmal subarachnoid hemorrhage in about 1993 while she was recuperating from what sounds to have been sepsis and multi- organ failure. She states since then, she did not have any headaches until about a year ago when these new ones came on. She continued to have bad headaches yesterday and blurry vision and somehow I believe communicated with her primary care or coverage. She has advised that she be evaluated in the emergency room. She was diagnosed as having DVT and was put on Eliquis approximately 3 weeks ago. As part of her evaluation in the emergency room last night, she had a CT angiogram of the chest which revealed new pulmonary emboli, which were not present on a prior CT angiogram of the chest earlier this month. 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 PAST SURGICAL HISTORY: Notable for coronary artery bypass surgery, herniorrhaphies, Jordan fundoplication, cerebral aneurysm clipping, several orthopedic surgeries. MEDICATIONS AT THE TIME OF ADMISSION: Consist of: 1. Reglan 5 mg p.o. t.i.d. p.r.n. gastroparesis. 2. Toprol XL 25 mg p.o. every day. 3. Apixaban 5 mg p.o. b.i.d. 4. Glucophage 1000 mg p.o. b.i.d. 5. Lipitor 20 mg p.o. every day. 6. Starlix 60 mg p.o. t.i.d. p.c. 7. [place] 1 tablet every 4 hours, which she states she does not take as it makes her too tired. 8. Aspirin 81 mg p.o. every day. 9. Tylenol 325 mg p.o. p.r.n. headache. ALLERGIES: She is allergic to PENICILLIN and DAPAGLIFLOZIN. FAMILY HISTORY: Notable for mother having pulmonary embolism, no history of intracranial hemorrhages. REVIEW OF SYSTEMS: Notable for persistent neck pain. She has occasional back pain. No falls. No fevers or chills. She denies shortness of breath or chest pain. She has ongoing headache, which she states is better today than it was yesterday. No history of head trauma. No history of seizures or epilepsy. She believe she recovered from her cerebral hemorrhage without weakness, but does not remember the details very well. PHYSICAL EXAMINATION: She is afebrile, last temperature 98.1 orally, blood pressure 136/59, heart rate 72 and regular, respirations 18. Oxygen saturation is 100% on room air. Neck range of motion is somewhat limited with left posterolateral pain, particularly with right lateral flexion and left lateral rotation, but to a lesser extent flexion. There is a little bit of radiation to the left shoulder and anterior chest muscles with neck movement. Heart is in a regular rate and rhythm without murmurs heard. Carotid pulses are present and no bruits. Lungs are clear anterolaterally. Neurologic exam, the pupils are very small, at most 2 mm, reacting weakly to light. There is no ptosis. Fundi are poorly seen, but a brief looks at her optic discs appear sharp. Eye movements are normal and visual lundberg are full to confrontation. Facial musculature symmetric. Facial sensation to light touch is symmetric. Palate and tongue appeared normal and palate rises symmetrically. There is no dysarthria. Hearing is intact. Neck muscle bulk appears normal. Motor exam reveals a left pronator drift. She has normal strength proximally and distally in the upper extremities and lower extremities otherwise. Finger taps are a little slow in the left hand, but otherwise normal bilaterally. There is no rest tremor. Reflexes are intact and symmetric. Plantar responses are equivocal bilaterally. I did not attempt to ambulate her. She is alert and oriented, and a good detailed historian. Memory is intact and language is fluent. She has good attention, concentration, and fund of knowledge. DIAGNOSTIC STUDIES/LABORATORY DATA: Revealed includes a transthoracic echocardiogram today which did not reveal an atrial septal defect. CT angiogram of the head and neck did not reveal extracranial or intracranial stenosis, but did reveal artifact from a right, either middle cerebral artery or anterior communicating artery aneurysm clip. There is encephalomalacia on her brain CT in the right medial temporal and frontal area. Other laboratory data notable for unremarkable CBC other than a hemoglobin of 10.8, coags notable for INR 1.52 yesterday and 1.32 today. D-dimer greater than 1050. Chemistries notable for glucose 115 and 202 yesterday and today. Lactic acid 2.4 yesterday, chemistries otherwise unremarkable. Troponin yesterday 0.01. CRP on 09/09/16 normal at 3.0. IMPRESSION: Her headache is probably cervicogenic. It has been there for at least a month and seems to be precipitated by neck movement. It does not appear to be related to her current presentation for pulmonary emboli, other than that pulmonary emboli can cause or aggravate pre-existing headaches. The visual changes appear also to be related to her headache and there is no evidence of extracranial or intracranial vascular stenosis. I will just treat her headaches symptomatically with Tylenol. I suggested trying amitriptyline, but after I mentioned dry mouth, she said she would rather not try that. She is interested in seeing a physical therapist for her neck; however, and I think that would be a reasonable thing to undertake as an outpatient. [id number]/[facility] #: [id number] JORGE
--- NOTE | 2016-09-10 21:59 | CONS ---
MEDICAL ONCOLOGY/HEMATOLOGY CONSULTATION NOTE: DATE OF CONSULT: 09/10/16 REASON FOR CONSULT: Pulmonary embolism. HISTORY OF PRESENT ILLNESS: Pam Beltran is a 76-year-old female, whose relevant history dates back to 08/11/16 when she underwent a 4-vessel CABG in [place], [place]. She reports she was hospitalized for 4 days and did well at that time. She does not remember having any injections for blood thinners during that hospitalization. She subsequently was found to be lightheaded and dizzy and profusely sweating. She was urged by the visiting nurse to come to the hospital and was admitted on 08/19/16. There were no palpitations or loss of consciousness at that time. She did have some nausea and vomiting. CTA of the chest was performed and even when looked at in retrospect did not reveal any evidence for pulmonary emboli. Etiology of that episode was never fully elucidated. She was discharged to home on 08/20/16 and felt this was most likely dehydration. Transesophageal echocardiogram revealed ejection fraction of 55% to 60% with abnormal left ventricular diastolic function. She did well from then until 08/27/16, when she was found to have swelling in her leg. She presented to the emergency room and had a Doppler study performed. This revealed an extensive right lower extremity occlusive DVT extending as far proximal as the proximal segment of the femoral vein. She was started on Eliquis and reports she was taking her Eliquis daily on full schedule since that period of time. She presents now with blurry vision and headaches. She reports that she typically is getting headaches every morning for the past year, waking her about 4:30 or 5 in the morning and waking her up and on some days will have it throughout the day, but other days, it will then resolve. The headache that she had the night before that admission was the worst headache she has had to this point being 8/10 and she has had some headaches intermittently since. Along with the headache and blurred vision, she has just not felt well. She denies any shortness of breath, any significant chest pain. She has remained reasonably active until coming into the emergency room. CT scan was performed of the brain and was unremarkable showing aneurysm clipping. CTA of the chest revealed very extensive pulmonary emboli involving mostly the right main pulmonary artery and the right upper lobe segmental artery. There was no clot seen at all more distally. She received a dose of Lovenox in the emergency room. She then was started on Xarelto this morning at 15 mg with a plan for b.i.d. dosing. When I see her today, she reports that she is not particularly having any new symptoms, although she does continue to have the headaches, although not as severe as on admission. PAST MEDICAL HISTORY: Coronary artery disease, with CABG as discussed above; hyperlipidemia; hypertension; diabetes; DVT recently; associated with the diabetes, she does have some gastroparesis and a resultant bezoar. PAST SURGICAL HISTORY: 1. Status post CABG x4, July of 2016. 2. Status post brain aneurysm repair, 1993, with severe headaches until then and then none until the last year. 3. Laparoscopic cholecystectomy. 4. Jordan fundoplication. 5. Herniorrhaphy. 6. x4. 7. Cataract surgery. 8. Appendectomy. 9. Arthroscopy of the knee. MEDICATIONS: At the time of admission included: 1. Toprol-XL 25 mg daily. 2. Reglan 5 mg t.i.d. p.r.n. 3. Eliquis/apixaban 5 mg b.i.d. 4. Lipitor 20 mg at h.s. 5. Glucophage 1000 mg b.i.d. 6. Starlix 60 mg t.i.d. 7. Magnesium oxide 400 mg daily. 8. [place] 1 to 2 tablets q.4 hours p.r.n. pain. 9. Aspirin 81 mg daily. ALLERGIES: To PENICILLIN and to EPIDURAL MEDICATION, which she believes was DAPAGLIFLOZIN. FAMILY HISTORY: Mother with pulmonary embolism in her 30s and then dying suddenly at age 48 from presumed PE. Sister with multiple DVTs and PEs in her lifetime, first was at age 28. She has had 5 to 6 episodes, several of these have occurred when she was on Coumadin which she remained on lifelong after age 26 until she was switched to Eliquis 6 months ago. She believes that she was therapeutic at the time of some of her pulmonary emboli. Has 4 children, 1 son dying of pancreatic cancer, other 3 children in good health. SOCIAL HISTORY: Smoked as a teenager only. Has not smoked since. No alcohol. Her daughter lives with her. 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 REVIEW OF SYSTEMS: No recent signs of infection. No significant change in appetite or weight. Neurologic symptoms as discussed above with the headaches and vision. No chest pain or shortness of breath. No abdominal pain. No significant change in bowel or bladder habits. Review of systems otherwise negative except as discussed above. PHYSICAL EXAM: A 76-year-old female in no acute distress. Vital Signs: Blood pressure 136/59, pulse 73, afebrile. HEENT: PERRL, EOMI. No erythema or exudates. No palpable cervical, supraclavicular, or axillary adenopathy. Lungs : Clear. Heart: Regular rate and rhythm without murmurs, rubs, or gallops. Abdomen: Soft, nontender without masses or organomegaly. Extremities: No clubbing, cyanosis, or edema. Neurologic exam is without focal deficits. LABORATORY DATA: Include INR of 1.52 and a PTT of 27.4. CBC with a white count of 7200, hemoglobin 10.8, hematocrit 34, platelet count 280,000. D-dimer is positive, greater than 1075. Chemistry studies without significant abnormalities. Troponin 0.01. CK-MB of 1.5. IMPRESSION: Pulmonary embolism occurring while on Eliquis. She did not have any pulmonary emboli seen on CTA of the chest performed approximately 3 weeks ago. She did develop documented extensive deep venous thrombosis on 08/27/16. She now has nonspecific symptoms and is found to have extensive pulmonary emboli in the right main pulmonary artery and proximally, there is absolutely no clot seen distally, and absolutely no clot seen on the prior CTA. This pattern would suggest that her pulmonary embolism has occurred fairly recently and is therefore likely that has occurred or progressed while on Eliquis. I would recommend given her progression on this medication and also given her strong family history that she be switched to another class of medications. Xarelto is also a factor Xa inhibitor and therefore would not likely be the best choice. The best options would either be Coumadin with an initial Lovenox until therapeutic INR or Lovenox injections chronically. The patient refuses chronic Lovenox injections. Another alternative although likely not as good a choice would be to use another of the new novel oral anticoagulants, which works by different mechanism. Dabigatran is that medication, but although theoretically, this should work even in Eliquis failure, there is no literature to support this. I therefore suggested to the patient and her sister who has had the multiple deep venous thrombosis and pulmonary embolism in the past and who is present with her at the time of my discussion that she should try Lovenox initially with bridging to Coumadin and then to be followed for INRs lifelong. Given her family history of multiple deep venous thrombosis and pulmonary embolism and given the fact that she had had a presumed failure to Eliquis, I would recommend lifelong anticoagulation for her. CC: Dr. John Taylor; Dr. Rosas; Dr. Hanson * [id number]/[facility] #: [id number] [facility]
[2016-09-11] MEDS: Acetaminophen TAB* 325 MG PO PRN ×2 (04:08→13:23)
[2016-09-11] MEDS: NS 0.9% 1000 ML* 1,000 ML IV SCH (04:08)
[2016-09-11] MEDS: Insulin LISPRO* 1 UNITS UNIT SUBCUT SCH ×3 (08:17→13:24)
[2016-09-11] MEDS: Enoxaparin(*) 80 MG/0.8 ML SYR SUBCUT SCH (08:24)
[2016-09-11] MEDS: Metoprolol Succinate XL TAB* 25 MG PO SCH (08:25)
[2016-09-11] MEDS: Aspirin EC Low Dose* 81 MG TAB.EC PO SCH (08:25)
[2016-09-11] MEDS: Magnesium Oxide TAB* 400 MG PO SCH (08:25)
[2016-09-11 13:26] VITALS: BP 144/67
[2016-09-11] MEDS: Warfarin TAB(*) 5 MG PO SCH (17:19)
--- NOTE | 2016-09-12 08:34 | DS ---
DISCHARGE SUMMARY: DATE OF ADMISSION: 09/09/16 DATE OF DISCHARGE: 09/11/16 ADMISSION DIAGNOSES: 1. Pulmonary embolism. 2. Headache with blurry vision. 3. Coronary artery disease. 4. Gastroparesis. 5. Diabetes. 6. Carpal tunnel syndrome. 7. Hypertension. 8. Hyperlipidemia. 9. Osteoarthritis. DISCHARGE DIAGNOSES: 1. Pulmonary embolism. 2. Headache with blurry vision. 3. Coronary artery disease. 4. Gastroparesis. 5. Diabetes. 6. Carpal tunnel syndrome. 7. Hypertension. 8. Hyperlipidemia. 9. Osteoarthritis. HOSPITAL COURSE: The patient is a 76-year-old woman who presented to [facility] with a chief complaint of blurry vision and headache. The patient also had a recent diagnosis of a DVT, which she was started on Eliquis for about 1 week prior. She had not missed any doses. For unclear reason, the patient had a CTA of her chest, which actually did show a pulmonary embolism. Hematology was consulted and recommended the patient be switched over to Coumadin, although it was unclear if it was an Eliquis failure. They felt fairly sure that it was. The patient was started on Lovenox and Coumadin and was willing to take her own Lovenox shots and follow up with her PCP next week. The patient does have visiting nurse services who will check her INR at home. The patient did have a headache with blurry vision when she arrived, but the blurry vision dissipated on its own. She says she has been waking up every morning with a headache for the last year. We tried multiple medications including Fioricet, tramadol, and [place]. Her headache was somewhat better the next morning, but it was unclear why. It was recommended that possibly she will follow up with a neurologist as an outpatient for further evaluation of these headaches. The patient was stable and anxious to go home on 09/11/16. PHYSICAL EXAMINATION: On the date of discharge, temperature 97.9 degrees, heart rate 100 beats per minutes, respiratory rate 12 breaths per minute, pulse ox 97% on room air, and blood pressure 144/67. HEENT: Normocephalic, atraumatic. Pupils equal, round and reactive to light. Moist mucous membranes. Neck: Supple. No JVD, bruits, palpable thyroid, or lymphadenopathy. Chest: Clear to auscultation and percussion bilaterally. Cardiovascular Exam: S1, S2 appreciated. Regular rate and rhythm. Abdominal Exam: Positive bowel sounds in all 4 quadrants. Soft, nontender, and nondistended. Extremities: No cyanosis, clubbing, or edema; +2 peripheral pulses bilaterally. Neuro: Alert and oriented x3. Moves all extremities. Skin: No rashes or abnormalities. STUDIES DONE WHILE IN THE HOSPITAL: Chest x-ray, 09/09/16, impression: Postsurgical changes. No evidence for acute finding. CTA of the chest, 09/09/16, impression: Multiple pulmonary emboli including the right main pulmonary artery and right upper lobe segment pulmonary artery branches, small pericardial effusion unchanged. Brain CT, 09/09/16, impression: Postsurgical changes most consistent with prior aneurysmal clipping. No evidence for acute finding. Head CTA, 09/09/16, impression: No evidence of hemodynamically significant carotid stenosis. No evidence for recurrent aneurysm. Study limited due to artifact from aneurysm clips. Transthoracic echocardiogram, 09/09/16, impression: Mild concentric left ventricular hypertrophy observed, global left ventricular wall motion and contractility within normal limits. Estimated ejection fraction 55% to 60%, abnormal left ventricular diastolic function was observed consistent with impaired relaxation. The right ventricle was [id number] dilated. The right ventricle global systolic function is mildly reduced. A patent foramen ovale is not demonstrated by agitated contrast. Systolic excursion of the right coronary cusp is reduced and mobile. There is borderline aortic stenosis present and mild aortic regurgitation. There is mild mitral regurgitation, mild mitral stenosis, and moderate tricuspid regurgitation. Evidence of pulmonary hypertension may be under estimated at 31 mmHg. Compared with prior echo of 08/19/16, left ventricular function is stable. Right ventricular hypokinesis is new. The degree of TR has increased with mild PA pressure previously 48 mmHg. DISCHARGE MEDICATIONS: 1. Metoprolol succinate 25 mg daily. 2. Metoclopramide 5 mg 3 times a day as needed. 3. Atorvastatin 20 mg at bedtime. 4. Metformin 1000 mg twice daily. 5. Starlix 60 mg 3 times a day. 6. Magnesium oxide tab 100 mg daily. 7. [place] 5/325 mg 1 to 2 tabs every 4 hours as needed for pain. 8. Aspirin 81 mg daily. 9. Coumadin 5 mg daily at 5 p.m. 10. Lovenox 70 mg subcu q.12 hours. 11. Fioricet tab 1 tab every 4 hours as needed. DISCHARGE PLAN: The patient will be discharged home. She will have her INR checked next week with the visiting nurse service and Dr. Taylor will follow up on this and give her directions as to the Lovenox and Coumadin dosing. The patient is to return to the ED if she develops any worrisome symptoms. She should also follow up with Dr. Taylor within 1 week. TIME SPENT: Over 50 minutes was spent on this discharge; more than 35 minutes of which was spent in direct [id number] contact with the patient, evaluation, physical exam, counseling, and coordination of care. CC: John Taylor MD * [id number]/[facility] #: [id number] JORGE
--- NOTE | 2016-09-12 18:32 | ED ---
Sanjay Tai Billy, scribed for Gino Dick MD on 09/09/16 at 1512 . Complex/Multi-Sys Presentation - HPI Summary HPI Summary: Patient is a 76 year-old female coming to [facility] for evaluation of headache since last night. She states that she had 4x CABG surgery in early July of this year, and was also recently diagnosed with DVT, for which she is taking Eliquis. She took a hydrocodone at 0600 today for the headache, without improvement. She also reports feeling dizzy, nauseated, chills, and blurred vision. She states she also feels sore in the shoulders anteriorly, although she was told by her surgeon that this is quite normal after chest surgery. Otherwise, she has no new onset of chest pain. Denies blood in the stool. Denies any recent weight gain. - History Of Current Complaint Chief Complaint: EDHeadache Time Seen by Provider: 09/09/16 14:56 Hx Obtained From: Patient Onset/Duration: Gradual Onset, Lasting Hours, Still Present Timing: Constant Severity Currently: Moderate Severity Initially: Moderate Location: Pain At: - headache Character: Typical Headache Aggravating Factor(s): none Alleviating Factor(s): none Associated Signs And Symptoms: Positive: Dizziness, Nausea, Other - chills, blurred vision - Allergies/Home Medications Allergies/Adverse Reactions: Allergies Allergy/AdvReac Type Severity Reaction Status Date / Time Penicillins Allergy Unknown See Comment Verified 09/09/16 14:03 Dapagliflozin [From [facility]] Allergy Unknown Verified 09/09/16 14:03 Reaction Details EPIDURAL Allergy PT STATES Uncoded 03/14/16 06:18 SHE GOT TO MUCH Home Medications: Home Medications Atorvastatin* [Lipitor 20 MG*] 20 mg PO BEDTIME 09/09/16 [History Confirmed ] Metoprolol Succinate XL TAB* [Toprol XL TAB*] 25 mg PO DAILY 09/09/16 [History Confirmed 09/09/16] PMH/Surg Hx/FS Hx/Imm Hx Endocrine/Hematology History: Reports: Hx Diabetes - type 2 Denies: Hx Thyroid Disease Cardiovascular History: Reports: Hx Hypertension Denies: Other Cardiovascular Problems/Disorders Respiratory History: Reports: Hx Sleep Apnea - NOT DIAGNOSED Denies: Hx Asthma, Hx Chronic Obstructive Pulmonary Disease (COPD) GI History: Reports: Hx Hiatal Hernia - SURGICALLY REPAIRED 1992 Denies: Hx Ulcer, Other GI Disorders Musculoskeletal History: Reports: Hx Arthritis - RIGHT KNEE, Hx Rheumatoid Arthritis Denies: Hx Osteoporosis, Other Musculoskeletal History Sensory History: Reports: Hx Cataracts - ONEAL, Hx Contacts or Glasses - GLASSES Denies: Hx Hearing Aid Opthamlomology History: Reports: Hx Cataracts - ONEAL, Hx Contacts or Glasses - GLASSES Neurological History: Reports: Hx Migraine - PAST ONLY, Other Neuro Impairments/ Disorders - 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 Psychiatric History: Reports: Hx Anxiety - MILD, NO MEDS - Surgical History Surgery Procedure, Year, and Place: 4 c sections, gallbladder removed, many hernias, eye sugery Hx Anesthesia Reactions: Yes - N/V - Immunization History Date of Tetanus Vaccine: Unk Date of Influenza Vaccine: Fall 2014 Infectious Disease History: No Infectious Disease History: Denies: Hx Hepatitis, Hx Human Immunodeficiency Virus (HIV), Traveled Outside the [place] in Last 30 Days - Family History Known Family History: Positive: Other - Negative: osteoporosis, breast cancer, malignant hyperthermia - Social History Alcohol Use: None Hx Substance Use: No Substance Use Type: Reports: Prescribed Hx Tobacco Use: No Smoking Status (MU): Never Smoked Tobacco Have You Smoked in the Last Year: No Review of Systems Positive: Chills. Negative: Fever Positive: Blurred Vision. Negative: Erythema Negative: Sore Throat Negative: Chest Pain Negative: Shortness Of Breath, Cough Positive: Nausea. Negative: Abdominal Pain, Vomiting Negative: dysuria, hematuria Negative: Myalgia, Edema Negative: Rash Neurological: Other - dizzy Positive: Headache All Other Systems Reviewed And Are Negative: Yes Physical Exam - Summary Physical Exam Summary: Constitutional: Well-developed, Well-nourished, Alert. (-) Distressed Skin: Warm, Dry. Intact vein graft incisions in the left leg. HENT: Normocephalic; Atraumatic Eyes: Conjunctiva normal Neck: Musculoskeletal ROM normal neck. (-) JVD, (-) Stridor, (-) Tracheal deviation Cardio: Rhythm regular, rate normal, Heart sounds normal; Intact distal pulses; The pedal pulses are 2+ and symmetric. Radial pulses are 2+ and symmetric. (-) Murmur Pulmonary/Chest wall: Effort normal. (-) Respiratory distress, (-) Wheezes, (-) Rales Abd: Soft, (-) Tenderness, (-) Distension, (-) Guarding, (-) Rebound Musculoskeletal: (-) Edema Lymph: (-) Cervical adenopathy Neuro: Alert, Oriented x3 Psych: Mood and affect Normal Triage Information Reviewed: Yes Vital Signs On Initial Exam: Initial Vitals Temp Pulse Resp BP Pulse Ox 97.6 F 107 20 135/61 98 09/09/16 12:54 09/09/16 12:54 09/09/16 12:54 09/09/16 12:54 09/09/16 12:54 Vital Signs Reviewed: Yes - Guillermo Coma Scale Coma Scale Total: 15 Diagnostics - Vital Signs Vital Signs Temp Pulse Resp BP Pulse Ox 09/09/16 14:00 102 16 98/55 94 09/09/16 13:34 107 18 115/84 93 09/09/16 13:31 98 F 103 17 115/84 94 09/09/16 13:25 101 17 94 09/09/16 12:54 97.6 F 107 20 135/61 98 - Laboratory Lab Results: Lab Results 09/09/16 09/09/16 09/09/16 Range/Units 15:23 15:23 15:23 WBC 7.2 (3.5-10.8) 10^3/ul RBC 3.97 L (4.0-5.4) 10^6/ul Hgb 10.8 L (12.0-16.0) g/dl Hct 34 L (35-47) % MCV 86 (80-97) fL MCH 27 (27-31) pg MCHC 32 (31-36) g/dl RDW 15 (10.5-15) % Plt Count 280 (150-450) 10^3/ul MPV 7 L (7.4-10.4) um3 Neut % (Auto) 69.2 (38-83) % Lymph % (Auto) 18.1 L (25-47) % Jess[place] % (Auto) 9.0 (1-9) % Eos % (Auto) 2.7 (0-6) % Baso % (Auto) 1.0 (0-2) % Absolute Neuts (auto) 5.0 (1.5-7.7) 10^3/ul Absolute Lymphs (auto) 1.3 (1.0-4.8) 10^3/ul Absolute Monos (auto) 0.6 (0-0.8) 10^3/ul Absolute Eos (auto) 0.2 (0-0.6) 10^3/ul Absolute Basos (auto) 0.1 (0-0.2) 10^3/ul Absolute Nucleated RBC 0.01 10^3/ul Nucleated RBC % 0.1 INR (Anticoag Therapy) 1.52 H (0.89-1.11) APTT 27.4 (26.0-36.3) seconds D-Dimer, Quantitative > 1050 H (Less Than 230) ng/mL Sodium 134 (133-145) mmol/L Potassium 4.7 (3.5-5.0) mmol/L Chloride 101 (101-111) mmol/L Carbon Dioxide 24 (22-32) mmol/L Anion Gap 9 (2-11) mmol/L BUN 12 (6-24) mg/dL Creatinine 0.70 (0.51-0.95) mg/dL Est GFR ( Amer) 104.1 (>60) Est GFR (Non-Af Amer) 80.9 (>60) BUN/Creatinine Ratio 17.1 (8-20) Glucose 99 (70-100) mg/dL Lactic Acid (0.5-2.0) mmol/L Calcium 9.4 (8.6-10.3) mg/dL Magnesium 1.8 L (1.9-2.7) mg/dL Total Bilirubin 0.40 (0.2-1.0) mg/dL AST 15 (13-39) U/L ALT 11 (7-52) U/L Alkaline Phosphatase 86 (34-104) U/L Total Creatine Kinase 17 (10-223) U/L CK-MB (CK-2) 1.5 (0.6-6.3) ng/mL Troponin I 0.01 (<0.04) ng/mL C-Reactive Protein 3.00 (< 5.00) mg/L B-Natriuretic Peptide ( - 100) pg/mL Total Protein 6.9 (6.4-8.9) g/dL Albumin 3.7 (3.2-5.2) g/dL Globulin 3.2 (2-4) g/dL Albumin/Globulin Ratio 1.2 (1-3) Lipase 21 (11.0-82.0) U/L TSH 0.29 L (0.34-5.60) mcIU/mL Urine Color Urine Appearance Urine pH (5-9) Ur Specific [place] (1.010-1.030) Urine Protein (Negative) Urine Ketones (Negative) Urine Blood (Negative) Urine Nitrate (Negative) Urine Bilirubin (Negative) Urine Urobilinogen (Negative) Ur Leukocyte Esterase (Negative) Urine WBC (Auto) (Absent) Urine RBC (Auto) (Absent) Ur Squamous Epith Cells (Absent) Urine Bacteria (Absent) Urine Glucose (Negative) 09/09/16 09/09/16 09/09/16 Range/Units 15:23 15:23 15:44 WBC (3.5-10.8) 10^3/ul RBC (4.0-5.4) 10^6/ul Hgb (12.0-16.0) g/dl Hct (35-47) % MCV (80-97) fL MCH (27-31) pg MCHC (31-36) g/dl RDW (10.5-15) % Plt Count (150-450) 10^3/ul MPV (7.4-10.4) um3 Neut % (Auto) (38-83) % Lymph % (Auto) (25-47) % [place] % (Auto) (1-9) % Eos % (Auto) (0-6) % Baso % (Auto) (0-2) % Absolute Neuts (auto) (1.5-7.7) 10^3/ul Absolute Lymphs (auto) (1.0-4.8) 10^3/ul Absolute Monos (auto) (0-0.8) 10^3/ul Absolute Eos (auto) (0-0.6) 10^3/ul Absolute Basos (auto) (0-0.2) 10^3/ul Absolute Nucleated RBC 10^3/ul Nucleated RBC % INR (Anticoag Therapy) (0.89-1.11) APTT (26.0-36.3) seconds D-Dimer, Quantitative (Less Than 230) ng/mL Sodium (133-145) mmol/L Potassium (3.5-5.0) mmol/L Chloride (101-111) mmol/L Carbon Dioxide (22-32) mmol/L Anion Gap (2-11) mmol/L BUN (6-24) mg/dL Creatinine (0.51-0.95) mg/dL Est GFR ( Amer) (>60) Est GFR (Non-Af Amer) (>60) BUN/Creatinine Ratio (8-20) Glucose (70-100) mg/dL Lactic Acid 2.4 H* (0.5-2.0) mmol/L Calcium (8.6-10.3) mg/dL Magnesium (1.9-2.7) mg/dL Total Bilirubin (0.2-1.0) mg/dL AST (13-39) U/L ALT (7-52) U/L Alkaline Phosphatase (34-104) U/L Total Creatine Kinase (10-223) U/L CK-MB (CK-2) (0.6-6.3) ng/mL Troponin I (<0.04) ng/mL C-Reactive Protein (< 5.00) mg/L B-Natriuretic Peptide 111 H ( - 100) pg/mL Total Protein (6.4-8.9) g/dL Albumin (3.2-5.2) g/dL Globulin (2-4) g/dL Albumin/Globulin Ratio (1-3) Lipase (11.0-82.0) U/L TSH (0.34-5.60) mcIU/mL Urine Color Yellow Urine Appearance Clear Urine pH 6.0 (5-9) Ur Specific [place] 1.013 (1.010-1.030) Urine Protein Negative (Negative) Urine Ketones Negative (Negative) Urine Blood 1+ H (Negative) Urine Nitrate Negative (Negative) Urine Bilirubin Negative (Negative) Urine Urobilinogen Negative (Negative) Ur Leukocyte Esterase Trace H (Negative) Urine WBC (Auto) 1+(6-10/hpf) H (Absent) Urine RBC (Auto) 1+(3-5/hpf) H (Absent) Ur Squamous Epith Cells Present H (Absent) Urine Bacteria Absent (Absent) Urine Glucose Negative (Negative) Result Diagrams: 09/10/16 05:27 09/10/16 05:27 Lab Statement: Any lab studies that have been ordered have been reviewed, and results considered in the medical decision making process. - Radiology CXR Xray Interpretation: No Acute Changes Radiology Interpretation Completed By: Radiologist - CT CTA chest CT Interpretation Completed By: Radiologist - 1. MULTIPLE PULMONARY EMBOLI INVOLVING THE RIGHT MAIN PULMONARY ARTERY AND RIGHT UPPER LOBE SEGMENTAL ARTERY BRANCHES. 2. SMALL PERICARDIAL EFFUSION, UNCHANGED. Brain CT Interpretation: No Acute Changes CT Interpretation Completed By: Radiologist - EKG 1335 EKG Interpretation: sinus tachycardia 101 bpm, no STEMI 1303 EKG Interpretation: sinus tachycardia 105 bpm, no STEMI Complex Multi-Symp Course/Dx Assessment/Plan: 76 year-old female comes to the ED for evaluation of headache. Patient recently had 4x CABG and was evaluated for DVT, and is being treated with Eliquis. However, CTA chest shows multiple pulmonary emboli involving the right main pulmonary artery and right upper lobe segmental artery branches. CT brain shows no acute changes. CXR shows no acute changes. EKG is unremarkable. Lactic acid is 2.4. In the ED course, patient was hydrated with IV fluids and given Lovenox. Patient care was discussed with Kee Esteves, who admits the patient to the hospitalist services. - Diagnoses Provider Diagnoses: Pulmonary embolism - Physician Notifications Discussed Care Of Patient With: Kee Esteves NP (hospitalist) at [phone] - Critical Care Time Critical Care Time: 30-74 min - 45 minutes Discharge - Discharge Plan Condition: Stable Disposition: ADMITTED TO [facility] documentation as recorded by the Sanjay simon Billy accurately reflects the service I personally performed and the decisions made by , Gino Dick MD.
== END 2016-09-11 17:53 | disposition home or self-care (01) | DRG 176 ==
LOC: ED 12:45 → MEDTELE 18:33
PROVIDERS: ADMIT Internal Medicine; ATTEND Internal Medicine
DX: I26.99 Other pulmonary embolism without acute cor pulmonale (principal); I27.2 Other secondary pulmonary hypertension; K31.84 Gastroparesis; E13.43 Other specified diabetes mellitus with diabetic autonomic (poly)neuropathy; Z86.718 Personal history of other venous thrombosis and embolism; Z95.1 Presence of aortocoronary bypass graft; Z88.8 Allergy status to other drugs, medicaments and biological substances; Z88.0 Allergy status to penicillin; I10 Essential (primary) hypertension; G47.30 Sleep apnea, unspecified; M17.11 Unilateral primary osteoarthritis, right knee; M06.9 Rheumatoid arthritis, unspecified; G43.909 Migraine, unspecified, not intractable, without status migrainosus; F41.9 Anxiety disorder, unspecified; Z80.3 Family history of malignant neoplasm of breast; I25.10 Atherosclerotic heart disease of native coronary artery without angina pectoris; E78.5 Hyperlipidemia, unspecified; E11.40 Type 2 diabetes mellitus with diabetic neuropathy, unspecified; Z98.42 Cataract extraction status, left eye; Z98.41 Cataract extraction status, right eye; Z83.3 Family history of diabetes mellitus; Z87.891 Personal history of nicotine dependence; G56.00 Carpal tunnel syndrome, unspecified upper limb; I08.3 Combined rheumatic disorders of mitral, aortic and tricuspid valves; Z79.82 Long term (current) use of aspirin; Z79.01 Long term (current) use of anticoagulants; Z79.84 Long term (current) use of oral hypoglycemic drugs; H53.8 Other visual disturbances; Z80.0 Family history of malignant neoplasm of digestive organs
CPT/HCPCS: 36415; 70450; 70496; 70498; 71010; 71275; 80048; 80053; 81003; 81015; 82550; 82553; 83605; 83690; 83735; 83880; 84443; 84484; 85025; 85379; 85610; 85730; 86140; 87077; 87086; 87186; 93005; 93306; 94760; A9270-GY; J1650; Q9967

== ENCOUNTER 2017-04-03 18:21 | Emergency (ER) | payer MEDICARE, OTHER ==
[2017-04-03 18:38] VITALS: BP 146/82
--- NOTE | 2017-04-03 19:08 | UC ---
Knee Pain HPI - HPI Summary HPI Summary: LEFT KNEE WAS FEELING A BIT ACHY YESTERDAY. TODAY WOKE UP WITH SEVERE PAIN, CAN BARELY WALK ON IT. IS RED, HOT AND SWOLLEN. VERY RESTRICTED ROM. NO PREVIOUS INJURY TO LEFT KNEE. HAD VEIN HARVESTED FROM LLE FOR CARDIAC SURGERY. DENIES ANY INJURY OR TRAUMA. HAS NOT BEEN KNEELING, SQUATTING, DOING HEAVY LIFTING OR STRENUOUS ACTIVITIES. HAS BEEN IN PHYSICAL THERAPY FOR SCIATICA LEFT LEG. DISCHARGED 03/24/17. THIS PAIN FEELS DIFFERENT. DENIES FEVER. PT IS ON COUMADIN FOR RLE DVT/PE. 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 - DAUGHTER Onset/Duration: Gradual Onset, Lasting Hours, Still Present Severity Initially: Moderate Severity Currently: Severe Pain Intensity: 10 Pain Scale Used: 0-10 Numeric Character: Sharp, Aching, Throbbing Aggravating Factor(s): Movement, Weight Bearing Alleviating Factor(s): Nothing Associated Signs And Symptoms: Positive: Swelling, Redness Able to Bear Weight: Yes - WITH EXTREME PAIN - Allergies/Home Medications Allergies/Adverse Reactions: Allergies Allergy/AdvReac Type Severity Reaction Status Date / Time Penicillins Allergy Unknown See Comment Verified 04/03/17 18:38 Dapagliflozin [From [facility]] Allergy Unknown Verified 04/03/17 18:38 Reaction Details EPIDURAL Allergy PT STATES Uncoded 03/14/16 06:18 SHE GOT TO MUCH Home Medications: Home Medications Acetaminophen [Mapap] 1,000 mg PO PRN 04/03/17 [History] Gabapentin CAP(*) [Neurontin 400 mg CAP(*)] 400 mg PO QID 04/03/17 [History Confirmed 04/03/17] Warfarin TAB(*) [Coumadin TAB(*)] 2.5 mg PO DAILY PRN 04/03/17 [History Confirmed 04/03/17] Warfarin TAB(*) [Coumadin TAB(*)] 5 mg PO DAILY PRN 04/03/17 [History Confirmed 04/03/17] PMH/Surg Hx/FS Hx/Imm Hx Cardiovascular History: Cardiac Disease, Deep Vein Thrombosis - RLE DVT/PE Other Neurological History: SCIATICA - Surgical History Surgical History: Yes Surgery Procedure, Year, and Place: 4 c sections, gallbladder removed, many hernias, eye sugery, CABG X4 JULY 2016 - Family History Known Family History: Positive: Hypertension, Other - Negative: osteoporosis, breast cancer, malignant hyperthermia - Social History Alcohol Use: None Substance Use Type: Prescribed Smoking Status (MU): Never Smoked Tobacco Have You Smoked in the Last Year: No - Immunization History Most Recent Influenza Vaccination: 2016 Most Recent Pneumonia Vaccination: has received in the past Review of Systems Constitutional: Negative Skin: Other - ERYTHEMA LEFT KNEE Respiratory: Negative Cardiovascular: Negative Gastrointestinal: Negative Musculoskeletal: Arthralgia, Decreased ROM, Edema All Other Systems Reviewed And Are Negative: Yes Physical Exam Triage Information Reviewed: Yes Appearance: Well-Appearing, Well-Nourished, Pain Distress - MOD Vital Signs: Initial Vital Signs Temp 98.1 F 04/03/17 18:31 Pulse 105 04/03/17 18:31 Resp 20 04/03/17 18:31 BP 146/82 04/03/17 18:31 Pulse Ox 100 04/03/17 18:31 Vital Signs Reviewed: Yes Eyes: Positive: Conjunctiva Clear ENT: Positive: Hearing grossly normal Neck: Positive: Supple Respiratory: Positive: No respiratory distress, No accessory muscle use Cardiovascular: Positive: Pulses Normal Abdomen Description: Positive: Soft Musculoskeletal: Positive: ROM Limited @ - LEFT KNEE, Edema @ - LEFT KNEE, Other : - TTP DIFFUSELY OVER LEFT KNEE. WORSE ANTEROMEDIALLY. SWOLLEN JOINT. WARM TO TOUCH. LIGAMENTS INTACT. SIGNIFICANTLY DECREASED ROM. KNEE EXAM LIMITED DUE TO PAIN. Neurological: Positive: Alert Psychological: Positive: Normal Response To Family, Age Appropriate Behavior Skin: Positive: Other - LEFT KNEE ERYTHEMA. Negative: rashes Diagnostics - Radiology LEFT KNEE XRAY Xray Interpretation: Positive (See Comments) - Minimal chondrocalcinosis at the menisci consistent with degeneration. Small joint effusion. Negative for fracture Radiology Interpretation Completed By: Radiologist Knee Pain Course/Dx - Course Course Of Treatment: SEND TO ED FOR FURTHER EVAL. NEED TO R/O SEPTIC JOINT. - Differential Dx/Diagnosis Provider Diagnoses: LEFT KNEE PAIN/SWELLING Discharge - Discharge Plan Condition: Stable Disposition: OTHER Discharge Disposition Comment: TO [facility] ED BY PRIVATE CAR Patient Education Materials: Swollen Knee Joint (ED) Referrals: John Taylor MD [Primary Care Provider] - If Needed Additional Instructions: CONCERN FOR SEPTIC JOINT. GO DIRECTLY TO [facility] ED FROM HERE FOR FURTHER EVALUATION.
--- NOTE | 2017-04-03 19:42 | RAD ---
Indication: LEFT knee pain and swelling without proceeding injury. Comparison: No relevant prior exams available on the [facility] PACS for comparison. Technique: LEFT knee: AP, tunnel, lateral, sunrise views. Report: Small suprapatellar joint effusion. Bone density appears decreased throughout. Negative for fracture or malalignment. Minimal chondrocalcinosis at the medial and lateral menisci. Peripheral vascular calcifications. Medial surgical clips. Mild nonfocal soft tissue swelling. IMPRESSION: Minimal chondrocalcinosis at the menisci consistent with degeneration. Small joint effusion. Negative for fracture.
== END 2017-04-03 19:59 ==
LOC: UCEAST 18:21
DX: M25.562 Pain in left knee (principal); M25.462 Effusion, left knee; I82.409 Acute embolism and thrombosis of unspecified deep veins of unspecified lower extremity; I26.99 Other pulmonary embolism without acute cor pulmonale; Z79.01 Long term (current) use of anticoagulants; M54.32 Sciatica, left side
CPT/HCPCS: 99212; G0463

== ENCOUNTER 2017-04-03 20:56 | Emergency (ER) | payer MEDICARE, OTHER ==
[2017-04-03 23:16] LABS: Albumin 3.8 g/dL (3.2-5.2); BUN/Creatinine Ratio 20.8 (8-20); Calcium 8.8 mg/dL (8.6-10.3); EGFR African American 93.2 (>60); EGFR Non-African American 72.5 (>60); Globulin 2.8 g/dL (2-4); Potassium 3.9 mmol/L (3.5-5.0); Total Bilirubin 0.5 mg/dL (0.2-1.0); Total Protein 6.6 g/dL (6.4-8.9)
[2017-04-04 00:02] LABS: Hematocrit 33 % (35-47); Hemoglobin 10.7 g/dl (12.0-16.0); Mean Corpuscular HGB Conc 32 g/dl (31-36); Mean Corpuscular Hemoglobin 27 pg (27-31); Mean Corpuscular Volume 83 fL (80-97); Mean Platelet Volume 8 um3 (7.4-10.4); Red Blood Count 4.02 10^6/ul (4.0-5.4); Red Cell Distribution Width 16 % (10.5-15); White Blood Count 9.4 10^3/ul (3.5-10.8)
[2017-04-04] MEDS ORDERED: NS 0.9% 1000 ML* 1,000 ML IV ONE (00:35)
[2017-04-04] MEDS ORDERED: Clindamycin 600 MG IVPREMIX(* 600 MG/50 ML SDV IV ONE (02:38)
[2017-04-04] MEDS ORDERED: oxyCODONE/Acetamin 5/325 MG* TAB PO ONE (02:43)
--- NOTE | 2017-04-04 03:59 | ED ---
Andriy Tai Alfonso, scribed for Myles Ibarra MD on 04/04/17 at 0008 . Lower Extremity - HPI Summary HPI Summary: This patient is a 76 year old F presenting to [facility] referred from [facility] accompanied by daughter with a chief complaint of left knee pain worse since 299 today. She reports a CABG from which LLE veins were used. The patient rates the pain 10/10 in severity. Symptoms aggravated by movement, and palpations. Symptoms alleviated by nothing. Patient reports swelling, erythema, and nausea (when eating due to DM). Patient denies fever, and vomiting. Patient is on Coumadin. - History of Current Complaint Chief Complaint: EDExtremityLower Stated Complaint: LT KNEE SWOLLEN Hx Obtained From: Patient Onset of Pain: Prior to Arrival Onset/Duration: Still Present Severity Currently: Severe Pain Intensity: 10 Pain Scale Used: 0-10 Numeric Timing: Constant Location: Is Discrete @ - left knee Aggravating Factor(s): Movement, Other - palpation Alleviating Factor(s): Nothing - Allergies/Home Medications Allergies/Adverse Reactions: Allergies Allergy/AdvReac Type Severity Reaction Status Date / Time Penicillins Allergy Unknown See Comment Verified 04/03/17 21:10 Dapagliflozin [From [facility]] Allergy Unknown Verified 04/03/17 21:10 Reaction Details EPIDURAL Allergy PT STATES Uncoded 04/03/17 21:10 SHE GOT TO MUCH PMH/Surg Hx/FS Hx/Imm Hx Endocrine/Hematology History: Reports: Hx Diabetes - type 2 Denies: Hx Thyroid Disease Cardiovascular History: Reports: Hx Hypertension Denies: Other Cardiovascular Problems/Disorders Respiratory History: Reports: Hx Sleep Apnea - NOT DIAGNOSED Denies: Hx Asthma, Hx Chronic Obstructive Pulmonary Disease (COPD) GI History: Reports: Hx Hiatal Hernia - SURGICALLY REPAIRED 1992 Denies: Hx Ulcer, Other GI Disorders Musculoskeletal History: Reports: Hx Arthritis - RIGHT KNEE, Hx Rheumatoid Arthritis Denies: Hx Osteoporosis, Other Musculoskeletal History Sensory History: Reports: Hx Cataracts - ONEAL, Hx Contacts or Glasses - GLASSES Denies: Hx Hearing Aid Opthamlomology History: Reports: Hx Cataracts - ONEAL, Hx Contacts or Glasses - GLASSES Neurological History: Reports: Hx Migraine - PAST ONLY, Other Neuro Impairments/ Disorders - 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 Psychiatric History: Reports: Hx Anxiety - MILD, NO MEDS - Surgical History Surgery Procedure, Year, and Place: 4 c sections, gallbladder removed, many hernias, eye sugery, CABG X4 JULY 2016 Hx Anesthesia Reactions: Yes - N/V - Immunization History Date of Tetanus Vaccine: Unk Date of Influenza Vaccine: Fall 2014 Immunizations Up to Date: Yes Infectious Disease History: No Infectious Disease History: Denies: Hx Hepatitis, Hx Human Immunodeficiency Virus (HIV), Traveled Outside the [place] in Last 30 Days - Family History Known Family History: Positive: Hypertension, Other - Arthritis; neg osteoporosis, breast cancer, malignant hyperthermia - Social History Alcohol Use: None Hx Substance Use: No Substance Use Type: Reports: Prescribed Hx Tobacco Use: No Smoking Status (MU): Never Smoked Tobacco Have You Smoked in the Last Year: No Review of Systems Negative: Fever Positive: Nausea. Negative: Vomiting Positive: Edema, Other - left knee pain Positive: Other - erythema All Other Systems Reviewed And Are Negative: Yes Physical Exam - Summary Physical Exam Summary: Appearance: Well-appearing, Well-nourished Sin: Warm Eyes: Normal ENT: Normal Neck: Supple, nontender Respiratory: Clear to auscultation Cardiovascular: Normal Abdomen: Soft, nontender Bowel: Present Musculoskeletal: Left knee: Diffuse anterior swelling and minimal redness. Tender to palpation. Tenderness along the borders of the patella. Minimally tenderness along the left vein harvest site at left lower thigh. Patient is able to actively range left knee from approximately 170 to 90 degrees. Normal ROM at feet and ankles bilaterally. Soft compartments of the thighs and calfs bilateral. Neurological: Normal, A&Ox3 Psychiatric: Normal Triage Information Reviewed: Yes Vital Signs On Initial Exam: Initial Vitals Temp Pulse Resp BP Pulse Ox 97.9 F 121 16 139/86 96 04/03/17 21:04 04/03/17 21:04 04/03/17 21:04 04/03/17 21:04 04/03/17 21:04 Vital Signs Reviewed: Yes - [place] Coma Scale Coma Scale Total: 15 Diagnostics - Vital Signs Vital Signs Temp Pulse Resp BP Pulse Ox 04/03/17 23:30 103 125/68 96 04/03/17 23:20 103 94 04/03/17 23:18 131/69 04/03/17 21:04 97.9 F 121 16 139/86 96 - Laboratory Lab Results: Lab Results 11/17/17 11/17/17 11/17/17 Range/Units 22:50 22:50 23:35 WBC 9.4 (3.5-10.8) 10^3/ul RBC 4.02 (4.0-5.4) 10^6/ul Hgb 10.7 L (12.0-16.0) g/dl Hct 33 L (35-47) % MCV 83 (80-97) fL MCH 27 (27-31) pg MCHC 32 (31-36) g/dl RDW 16 H (10.5-15) % Plt Count 302 (150-450) 10^3/ul MPV 8 (7.4-10.4) um3 Neut % (Auto) 72.6 (38-83) % Lymph % (Auto) 12.9 L (25-47) % Stanton % (Auto) 13.0 H (1-9) % Eos % (Auto) 0.5 (0-6) % Baso % (Auto) 1.0 (0-2) % Absolute Neuts (auto) 6.8 (1.5-7.7) 10^3/ul Absolute Lymphs (auto) 1.2 (1.0-4.8) 10^3/ul Absolute Monos (auto) 1.2 H (0-0.8) 10^3/ul Absolute Eos (auto) 0.1 (0-0.6) 10^3/ul Absolute Basos (auto) 0.1 (0-0.2) 10^3/ul Absolute Nucleated RBC 0 10^3/ul Nucleated RBC % 0 INR (Anticoag Therapy) 2.05 H (0.89-1.11) Sodium 130 L (133-145) mmol/L Potassium 3.9 (3.5-5.0) mmol/L Chloride 99 L (101-111) mmol/L Carbon Dioxide 24 (22-32) mmol/L Anion Gap 7 (2-11) mmol/L BUN 16 (6-24) mg/dL Creatinine 0.77 (0.51-0.95) mg/dL Est GFR ( Amer) 93.2 (>60) Est GFR (Non-Af Amer) 72.5 (>60) BUN/Creatinine Ratio 20.8 H (8-20) Glucose 355 H (70-100) mg/dL Calcium 8.8 (8.6-10.3) mg/dL Total Bilirubin 0.50 (0.2-1.0) mg/dL AST 14 (13-39) U/L ALT 12 (7-52) U/L Alkaline Phosphatase 75 (34-104) U/L C-Reactive Protein 26.00 H (< 5.00) mg/L Total Protein 6.6 (6.4-8.9) g/dL Albumin 3.8 (3.2-5.2) g/dL Globulin 2.8 (2-4) g/dL Albumin/Globulin Ratio 1.4 (1-3) Result Diagrams: 04/03/17 23:35 04/03/17 22:50 Lab Statement: Any lab studies that have been ordered have been reviewed, and results considered in the medical decision making process. - Additional Comments Diagnostic Additional Comments: Venous Doppler Study reveals, per radiologist, No DVT. ED physician has reviewed this radiology report and agrees. Re-Evaluation - Re-Evaluation First Eval Re-Evaluation Time: 03:44 Change: Improved Comment: No fever or unconstitutional symptoms. Feels slightly improves after fluids and abx. Unchanged ROM in knee. Lower Extremity Course/Dx - Course Assessment/Plan: Given the patient clinical appearance, and H&P, I have aa every low suspicion for septic arthritis. Pt has relatively intact ROM and no fever, elevation WBC, or constitution symptoms. Pain is likely due to overlying cellulitis which in the present of which an arthrocentesis is contraindicated. Pain more likely from combination of cellulitis and galicia cyst as per history. Instructed continue abx for cellulitis and follow up with PCP and orthopedics within 1-2 weeks and return to the ED for worsening or returning sx. Patient and family understand and agree to d/c instructions. - Diagnoses Provider Diagnoses: Cellulitis, Knee pain Discharge - Discharge Plan Condition: Improved Disposition: HOME Prescriptions: Clindamycin HCl [Clindamycin 150 MG CAP*] 150 mg PO QID #28 cap Misc. Devices [Walker/Folding Keith] 1 mis XX DAILY #1 mis Patient Education Materials: Cellulitis (ED), Bakers Cyst (ED), Knee Pain (ED) , Swollen Knee Joint (ED) Referrals: John Taylor MD [Primary Care Provider] - 2 Days Monik Bar MD [Medical Doctor] - Additional Instructions: RETURN TO THE EMERGENCY DEPARTMENT FOR CHANGING OR WORSENING SYMPTOMS. PLEASE MAKE AN APPOINTMENT TO SEE YOUR PRIMARY CARE DOCTOR TO BE SEEN WITHIN 1 WEEK. The documentation as recorded by the Andriy simon Alfonso accurately reflects the service I personally performed and the decisions made by , Myles Ibarra MD.
[2017-04-04 05:04] VITALS: BP 136/72
--- NOTE | 2017-04-04 10:12 | RAD ---
HISTORY: Left leg pain and edema TECHNIQUE: Multiple transverse and longitudinal ultrasound images were obtained of the veins of the right lower extremity using grayscale, color Doppler, and spectral Doppler imaging with and without compression and with augmentation. FINDINGS: VEINS: The common femoral vein, deep femoral vein, femoral vein and popliteal vein are compressible throughout their course, with normal flow on color Doppler imaging and normal response to augmentation on spectral Doppler imaging. SOFT TISSUES: Grossly normal. No large popliteal fossa cyst was identified. IMPRESSION: No sonographic evidence of deep vein thrombosis.
== END 2017-04-04 04:55 | disposition home or self-care (01) ==
LOC: ED 20:56
DX: L03.119 Cellulitis of unspecified part of limb (principal); R11.0 Nausea; M25.562 Pain in left knee
CPT/HCPCS: 36415; 80053; 83605; 85025; 85610; 86140; 99283; A9270-GY

== ENCOUNTER 2017-07-02 06:02 | Day surgery (SDC) | payer MEDICARE, OTHER ==
--- NOTE | 2017-06-23 18:48 | HP ---
HISTORY AND PHYSICAL: DATE OF ADMISSION/SURGERY: 07/02/17 DATE OF OFFICE VISIT: 06/19/17 SURGEON: Monik Bar MD * (DICTATED BY BINTA ABDI) PROCEDURE: Left knee arthroscopy with partial medial meniscectomy, possible chondroplasty, possible synovectomy. CHIEF COMPLAINT: Left knee pain. HISTORY OF PRESENT ILLNESS: Ms. Beltran is a 77-year-old female with complaints of left knee pain and MRI confirms the medial meniscus tear and she has elected to proceed with surgery, which is scheduled for 07/02/[address] Bar. PAST MEDICAL HISTORY: DVT, coronary artery disease, diabetes, hypertension, and high cholesterol. PAST SURGICAL HISTORY: CABG, , trigger finger release, cholecystectomy , and appendectomy. CURRENT MEDICATIONS: 1. Warfarin sodium 5 mg. 2. Metoclopramide 5 mg. 3. Atorvastatin calcium 20 mg q.h.s. 4. Metoprolol 25 mg every day. 5. Metformin 1000 mg twice a day. 6. Nateglinide 60 mg 1 tab before meals. 7. Magnesium 400 mg a day. 8. Insulin. 9. Nitroglycerin 0.4 mg. 10. Clobetasol propionate cream as needed. 11. Tylenol as needed. ALLERGIES: PENICILLIN, FARXIGA, and EPIDURAL. FAMILY HISTORY: Diabetes and blood clots. SOCIAL HISTORY: She is a 77-year-old female. She lives with her daughter. She does not smoke or use drugs or alcohol. REVIEW OF SYSTEMS: A complete 14-point review of systems was reviewed with the patient and was positive for history of diabetes, DVT and she had a severe reaction to a prior epidural. PHYSICAL EXAMINATION GENERAL: She is well developed, well nourished, in no acute distress. VITAL SIGNS: She stands 62 inches tall, weighs 152 pounds, her blood pressure is 142/63, heart rate is 82. HEENT: Normocephalic, atraumatic. NECK: Supple. No palpable nodes. PULMONARY: The lungs are clear to auscultation bilaterally. CARDIO: Regular rate and rhythm. Strong S1 and S2. ABDOMEN: Soft, nontender, and nondistended. NEUROLOGIC: She is alert and oriented x3. Cranial nerves II through XII are intact. MUSCULOSKELETAL: Left lower extremity, the skin is intact. There are no open wounds or abrasions. She has some tenderness over the medial joint line. Positive Bethany's and positive Apley's. Negative John's. 2+ dorsalis pedis pulses. She has intact sensation. Her lower extremity muscle group strengths are intact at 5/5. ASSESSMENT AND PLAN: Ms. Beltran is a 77-year-old female with complaints of left knee pain and MRI confirms the medial meniscus tear and she has elected to proceed with left knee arthroscopy with partial medial meniscectomy, possible chondroplasty, possible synovectomy. Surgery is scheduled for 07/02/[address] Bar discussed the risks and benefits of the surgery at today' s visit and all of her questions were answered. She was instructed to stop her Coumadin 5 days prior to the surgery, she will restart that after the surgery was completed and we have also sent her a prescription for Lovenox to take for the first 3 days postoperatively. She will see Dr. Bar back in clinic 2 weeks after the surgery. BINTA ABDI [id number]/[facility] #: [id number] JORGE
[~2017-07-02 06:02] MED LIST: Buffered Lidocaine 0.9% SYRIN* 5 ML/SYR SYRINGE INTRADERM ONE
[2017-07-02] MEDS ORDERED: Buffered Lidocaine 0.9% SYRIN* 5 ML/SYR SYRINGE ONE (06:06)
[2017-07-02] MEDS ORDERED: Clindamycin 900 MG IVPREMIX(* 900 MG/50 ML SDV IV ONE (06:06)
[2017-07-02 06:55] LABS: INR 0.94 (0.77-1.02)
[2017-07-02] MEDS ORDERED: EPINEPHRINE 1 MG/ML 1 ML VIAL ONE (06:57)
[2017-07-02] MEDS ORDERED: Bupivacaine 0.5% SDV PF* 10-30ML VIAL ONE (06:57)
[2017-07-02] MEDS ORDERED: methylPREDNISolone ACETATE 80* 80 MG/ML 1 ML VIAL ONE (06:57)
[2017-07-02] MEDS ORDERED: Midazolam* 1 MG/ML 2 ML VIAL (2 MG) ONE (07:25)
[2017-07-02] MEDS ORDERED: Propofol* 10 MG/ML 20 ML BTL IV PUSH ONE (07:25)
[2017-07-02] MEDS ORDERED: fentaNYL* 50 MCG/ML 2 ML VIAL (100 MCG VIAL) ONE ×2 (07:25→08:54)
[2017-07-02] MEDS ORDERED: fentaNYL* 50 MCG/ML 2 ML VIAL (100 MCG VIAL) IV PRN (07:56)
[2017-07-02] MEDS ORDERED: Ondansetron INJ* 2 MG/ML VIAL IV PRN (07:56)
[2017-07-02] MEDS ORDERED: HYDROcodone/ACETAMIN 5-325 MG* 1 TAB PO PRN (07:56)
[2017-07-02] MEDS ORDERED: Naloxone* 0.4 MG/ML 1 ML VIAL IV PRN (07:56)
[2017-07-02] MEDS ORDERED: oxyCODONE/Acetamin 5/325 MG* TAB PO PRN (07:56)
[2017-07-02] MEDS ORDERED: Dexamethasone IV* 4 MG/ML 1 ML (4 MG) ONE (08:00)
[2017-07-02] MEDS ORDERED: Ondansetron INJ* 2 MG/ML VIAL ONE (08:14)
[2017-07-02] MEDS ORDERED: HYDROcodone/ACETAMIN 5-325 MG* 1 TAB ONE (09:58)
[2017-07-02 10:24] VITALS: BP 138/68
--- NOTE | 2017-07-03 13:17 | OP ---
DATE OF OPERATION: 07/02/17 - [facility] DATE OF : 36 SURGEON: Monik Bar MD. BUSINESS RESILIENCY MANAGER: BINTA Horne. Mr. Mcfarland did help throughout the procedure with preparation of the leg, wound retraction, manipulation of the knee and wound closure. ANESTHESIOLOGIST: Dr. Staton. ANESTHESIA: General. PRE-OP DIAGNOSIS: Left knee pain with medial meniscal tear. 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 OPERATIVE PROCEDURE: Left total knee arthroscopy with partial medial meniscectomy and anterior synovectomy. ESTIMATED BLOOD LOSS: Less than 50 cc. COMPLICATIONS: None. SPECIMEN: None. BRIEF HISTORY/INDICATION: Ms. Beltran is a 77-year-old female with months of increasingly severe left knee pain. She had mechanical symptoms consistent with a medial meniscal tear. She failed conservative treatment with anti- inflammatories, intraarticular injections and physical therapy. Due to continued pain and decreased quality of life, she elected to undergo left total knee arthroscopy with partial medial meniscectomy. She understood she had some mild arthritis on radiographs and would continue to have arthritic pain. Informed consent was obtained from the patient. She understands the risks of surgery included but were not limited to bleeding, infection, damage to nearby structures, continued pain, need for further surgery, re-tear of the meniscus, continued arthritic pain and progression, stroke, heart attack, blood clot, and . She wished to proceed. INTRAOPERATIVE FINDINGS: Intraoperatively, the patient was noted to have a grade 3 and 4 Outerbridge cartilage changing in the medial and patellofemoral compartment with exposed subchondral bone. She was also noted to have a significant amount of anterior synovitis. She had a degenerative complex tear of the medial meniscus 50% posteriorly in the white-red zone. DESCRIPTION OF PROCEDURE: Ms. Beltran was identified in the preanesthesia unit. Her left lower extremity was marked as the correct operative side. Informed consent was signed and placed in the chart. The patient was taken to the operating room and placed under general anesthesia. Left lower extremity was prepped and draped in the usual sterile fashion. Preop time-out was made to correctly identify the patient's side and site. Appropriate perioperative antibiotics were given within 1 hour of incision. A 0.5 cm anterolateral portal incision was made using a 15 blade. This was carried down to the capsule. Trocar was introduced. As soon as the light and water sources were turned on, there was immediate visualization of the suprapatellar pouch. Suprapatellar pouch had no loose body or abnormalities. Patellofemoral compartment was reviewed and did have exposed subchondral bone along the femoral trochlear groove as well as a normal medial patellar facet with some patellar fraying. These were grade 3 and 4 Outerbridge cartilage changes. Medial gutter showed no significant plica or loose body. Anteriorly, there was quite a bit of synovitis noted. Medial compartment showed exposed subchondral bone and cartilage fraying along the medial femoral condyle. The posterior 50% of the medial meniscus showed a complex tear of the meniscus with anterior displacement of the fragment. ACL and PCL were intact. The knee was placed in a qiywuk-wy-mili position. There was no obvious lateral meniscal tear. There were no significant degenerative changes. Lateral gutter showed no plica or loose body. Under direct visualization, a medial portal incision was made. A probe was introduced and a second tour of the knee joint was performed. No additional findings were noted. Shaver and radiofrequency ablation wand were used to perform anterior synovectomy. All inflamed tissue was carefully removed. Next a straight biter was used to perform partial medial meniscectomy. A smooth border of the medial meniscus was obtained in the white-red zone and along the posterior 50% of the medial meniscus. Radiofrequency ablation wand was used to further smooth the edge of the meniscus. A probe was used to ensure there was no further tearing. The knee was copiously irrigated with sterile saline. All instruments were removed. Incisions were closed using interrupted 3-0 nylon suture. Intra- articular injection of 80 mg Depo-Medrol and 6 cc of 0.25% Marcaine was placed in the knee joint. Incisions were covered with Xeroform, 4x4s, and Webril. Kenrick wrap and cold pack were placed over this. The patient's anesthesia was reversed without difficulty. She was taken to the PACU in stable condition. Intended weight-bearing will be weightbearing as tolerated. Intended DVT prophylaxis will be to restart her baseline Coumadin doses. [id number]/[facility] #: [id number] [facility]
== END 2017-07-02 10:50 | disposition home or self-care (01) ==
LOC: OR 06:02
PROVIDERS: ATTEND Orthopaedic Surgery Adult Reconstructive Orthopaedic Surgery
DX: M23.204 Derangement of unspecified medial meniscus due to old tear or injury, left knee (principal); M17.12 Unilateral primary osteoarthritis, left knee; M65.862 Other synovitis and tenosynovitis, left lower leg; Z86.718 Personal history of other venous thrombosis and embolism; Z79.01 Long term (current) use of anticoagulants; E11.9 Type 2 diabetes mellitus without complications; Z79.84 Long term (current) use of oral hypoglycemic drugs; I25.10 Atherosclerotic heart disease of native coronary artery without angina pectoris; I10 Essential (primary) hypertension; E78.00 Pure hypercholesterolemia, unspecified; Z95.1 Presence of aortocoronary bypass graft
CPT/HCPCS: 36415; 85610; J1040; J1100; J2250; J2405; J2704; J3010

== ENCOUNTER 2020-02-04 10:44 | Observation (INO) ==
[2020-02-04] MEDS ORDERED: NS 0.9% 1000 ml BAG 1,000 ML IV ONE (11:19)
[2020-02-04 11:34] LABS: ABS Eosinophils 0.1 10^3/ul (0-0.6); ABS Lymphocytes 0.9 10^3/ul (1.0-4.8); ABS Monocytes 0.7 10^3/ul (0-0.8); ABS Neutrophils 5.6 10^3/ul (1.5-7.7); Eosinophil % 0.8 %; Hematocrit 33 % (35-47); Hemoglobin 10.4 g/dL (12.0-16.0); Lymphocyte % 12.1 %; Mean Corpuscular HGB Conc 32 g/dL (31-36); Mean Corpuscular Hemoglobin 25 pg (27-31); Mean Corpuscular Volume 81 fL (80-97); Mean Platelet Volume 7.9 fL (7.4-10.4); Platelet Count 311 10^3/uL (150-450); Red Blood Count 4.09 10^6 /uL (3.70-4.87); Red Cell Distribution Width 17 % (10-15); White Blood Count 7.3 10^3/uL (3.5-10.8)
[2020-02-04 11:46] LABS: Albumin 4.4 g/dL (3.2-5.2); Albumin/Globulin Ratio 1.6 (1-3); BUN/Creatinine Ratio 16.4 (8-20); C Reactive Protein 20.09 mg/L (<8.01); Calcium 9.7 mg/dL (8.6-10.3); EGFR African American 92.6 (>60); EGFR Non-African American 76.5 (>60); Globulin 2.8 g/dL (2-4); Potassium 3.6 mmol/L (3.5-5.0); Total Bilirubin 0.6 mg/dL (0.2-1.0); Total Protein 7.2 g/dL (6.4-8.9)
[2020-02-04] MEDS ORDERED: Dexamethasone IV 4 MG/ML VIAL 1 ml VIAL IV SLOW PU ONE (11:46)
[2020-02-04] MEDS ORDERED: Iodixanol (CONTRAST) 320 MG/ML 100 ML SDV IV ONE (12:02)
[2020-02-04] MEDS ORDERED: Clindamycin 300 MG IVPREMIX 300 MG/50 ML SDV IVPB ONE (16:21)
[2020-02-04] MEDS ORDERED: Dextrose 50% Syringe 50 ml 25 GM/50 ML SYRINGE IV PUSH PRN (16:26)
[2020-02-04] MEDS ORDERED: hydrALAZINE 20 mg/ml 1 ML Vial IV IV SLOW PU PRN (17:02)
[2020-02-04] MEDS: Clindamycin 300 MG IVPREMIX 300 MG/50 ML SDV IV SCH (23:58)
[2020-02-05] MEDS: Clindamycin 300 MG IVPREMIX 300 MG/50 ML SDV IV SCH ×2 (04:53→11:30)
[2020-02-05 07:42] LABS: BUN/Creatinine Ratio 15.8 (8-20); Calcium 9.3 mg/dL (8.6-10.3); EGFR African American 123.2 (>60); EGFR Non-African American 101.8 (>60); Potassium 3.7 mmol/L (3.5-5.0)
[2020-02-05 08:07] LABS: ABS Lymphocytes 0.6 10^3/ul (1.0-4.8); ABS Monocytes 0.5 10^3/ul (0-0.8); ABS Neutrophils 6.5 10^3/ul (1.5-7.7); Hematocrit 27 % (35-47); Hemoglobin 8.8 g/dL (12.0-16.0); Lymphocyte % 8.5 %; Mean Corpuscular HGB Conc 33 g/dL (31-36); Mean Corpuscular Hemoglobin 26 pg (27-31); Mean Corpuscular Volume 80 fL (80-97); Mean Platelet Volume 8.1 fL (7.4-10.4); Platelet Count 262 10^3/uL (150-450); Red Blood Count 3.39 10^6 /uL (3.70-4.87); Red Cell Distribution Width 17 % (10-15); White Blood Count 7.6 10^3/uL (3.5-10.8)
[2020-02-05 11:28] VITALS: BP 145/60
== END 2020-02-05 14:00 | disposition home or self-care (01) ==
LOC: ED 10:44 → MED 10:44
PROVIDERS: ADMIT Hospitalist; ATTEND Internal Medicine